=== PATIENT | female | born 1995 | race Native Hawaiian/Other Pacific Islander ===

== ENCOUNTER 2018-10-05 18:20 | Emergency (ER) | payer SELFPAY ==
--- NOTE | 2018-10-05 20:32 | XRAY Report ---
Reason: sob Procedure Date: 10/05/2018 Accession Number: [id number] / [id number] Procedure: XR - Chest 1 View X-Ray CPT Code: 31503 FULL RESULT: EXAM: CHEST RADIOGRAPHY EXAM DATE: 10/05/2018 08:22 PM. CLINICAL HISTORY: Sob. COMPARISON: None. TECHNIQUE: 1 view. FINDINGS: Lungs/Pleura: No focal opacities evident. No pleural effusion. No pneumothorax. Mediastinum: Within exam limitations, the cardiomediastinal contour is normal. Other: None. IMPRESSION: Normal single view chest. RADIA
[2018-10-05 20:50] LABS: BASOPHILS # (AUTO) 0.1 10^3/uL (0.0-0.1); BASOPHILS % (AUTO) 0.7 %; EOSINOPHILS # (AUTO) 0.1 10^3/uL (0.0-0.7); EOSINOPHILS % (AUTO) 1.4 %; HGB - HEMOGLOBIN 13.2 g/dL (12.0-16.0); LYMPHOCYTES # (AUTO) 3.5 10^3/uL (1.5-3.5); LYMPHOCYTES % (AUTO) 40.1 %; MEAN CORPUSCULAR HGB CONC 34.1 g/dL (32.0-36.0); MEAN CORPUSCULAR VOLUME 88.1 fL (81.0-99.0); MEAN PLATELET VOLUME 7.4 fL (7.9-10.8); MONOCYTES # (AUTO) 0.6 10^3/uL (0.0-1.0); MONOCYTES % (AUTO) 6.9 %; NEUTROPHILS # (AUTO) 4.4 10^3/uL (1.5-6.6); NEUTROPHILS % (AUTO) 50.9 %; PLT - PLATELET COUNT 253 10^3/uL (130-450); RED BLOOD COUNT 4.41 10^6/uL (4.20-5.40); RED CELL DISTRIBUTION WIDTH 13.1 % (12.0-15.0); WHITE BLOOD COUNT 8.6 x10^3/uL (4.8-10.8)
[2018-10-05 20:52] LABS: BILIRUBIN,URINE NEGATIVE (NEGATIVE); GLUCOSE, URINE (UA) NEGATIVE (NEGATIVE); KETONES,URINE (UA) NEGATIVE (NEGATIVE); LEUKOCYTE ESTERASE, URINE NEGATIVE (NEGATIVE); NITRITE,URINE NEGATIVE (NEGATIVE); OCCULT BLOOD,URINE NEGATIVE (NEGATIVE); PROTEIN,URINE NEGATIVE (NEGATIVE); UROBILINOGEN,URINE 0.2 (NORMAL) E.U./dL (NORMAL)
[2018-10-05 20:55] LABS: CLARITY,URINE CLEAR (CLEAR); HCG UR QUAL NEGATIVE
[2018-10-05 20:58] LABS: CALCIUM 9.1 mg/dL (8.5-10.3); CREATININE 0.8 mg/dL (0.4-1.0)
--- NOTE | 2018-10-05 21:05 | ED Physician Documentation ---
PD HPI URI - Stated complaint Stated Complaint: FATIGUE/THROAT PAIN - Chief complaint Chief Complaint: Heent - History obtained from History obtained from: Patient - History of Present Illness Timing - onset: How many days ago (3) Timing duration: Days (3) Timing details: Gradual onset, Still present, Waxing and waning Pain level max: 0 Pain level now: 0 Associated symptoms: Sore throat, Swollen nodes, Dyspnea. No: Fever, Chills, Sweats, Ear pain, Nasal congestion, Rhinorrhea, Sinus pain, Productive cough, Chest pain, NVD, Bilateral edema Contributing factors: No: Sick contact, Travel Improves by: Nothing Worsened by: Other (Nothing) Similar symptoms before: Has not had sx before Recently seen: Not recently seen - Additional information Additional information: 23-year-old female with no past medical or surgical history here with complain of sore throat the past 3 days associated with fatigue and difficulty breathing because she feels like something is in her throat. Denies any exposure to allergens.Denies smoking, alcohol, drugs or kissing and sexual activity. Denies any trauma, travel or sick contact. Review of Systems Ten Systems: 10 systems reviewed and negative Constitutional: reports: Fatigue. denies: Fever, Chills, Myalgias Nose: denies: Rhinorrhea / runny nose, Congestion Throat: reports: Sore throat, Swollen tonsils. denies: Dental pain / toothache (Chronic), Oral lesions / sores, Swallowed foreign body Cardiac: denies: Chest pain / pressure Respiratory: reports: Dyspnea. denies: Cough GI: denies: Abdominal Pain, Nausea, Vomiting, Diarrhea PD PAST MEDICAL HISTORY - Past Medical History Past Medical History: No GI: None DOMESTIC MAID: 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 - Past Surgical History Past Surgical History: Yes Ortho: Arthroscopic surgery /DOMESTIC MAID: Endometrial ablation HEENT: Myringotomy (tubes) - Present Medications Home Medications: Ambulatory Orders Medication Instructions Recorded Confirmed No Known Home Medications 10/05/18 10/05/18 - Allergies Allergies/Adverse Reactions: Allergies Allergy/AdvReac Type Severity Reaction Status Date / Time Penicillins Allergy Intermediate Respiratory Verified 10/05/18 18:34 - Social History Does the pt smoke?: No Smoking Status: Never smoker Does the pt drink ETOH?: Yes Does the pt have substance abuse?: No - Immunizations Immunizations are current?: No Immunizations: No immun - POLST Patient has POLST: No PD ED PE NORMAL - Vitals Vital signs reviewed: Yes - General General: Alert and oriented X 3, No acute distress, Well developed/nourished - HEENT HEENT: Atraumatic, PERRL, EOMI, Ears normal, Moist mucous membranes, Pharynx benign, Dentition benign, Other (Enlarged tonsils but no erythema nor exudate and nonkissing) - Neck Neck: Supple, no meningeal sign, Other (Bilateral anteriorCervical adenopathy with tenderness to palpation. Small in size.) - Cardiac Cardiac: RRR, No murmur - Respiratory Respiratory: No respiratory distress, Clear bilaterally - Abdomen Abdomen: Normal bowel sounds, Soft, Non tender, Non distended - Derm Derm: Warm and dry - Extremities Extremities: No deformity - Neuro Neuro: Alert and oriented X 3 - Psych Psych: Normal mood, Normal affect Results - Vitals Vitals: Vital Signs - 24 hr 10/05/18 18:32 Temperature 35.6 C L Heart Rate 108 H Respiratory 20 Rate Blood Pressure 145/103 H O2 Saturation 97 Oxygen O2 Source Room air - Labs Labs: Laboratory Tests 10/05/18 10/05/18 10/05/18 18:30 20:25 20:39 WBC 8.6 RBC 4.41 Hgb 13.2 Hct 38.9 MCV 88.1 MCH 30.0 MCHC 34.1 RDW 13.1 Plt Count 253 MPV 7.4 L Neut # (Auto) 4.4 Lymph # (Auto) 3.5 [place] # (Auto) 0.6 Eos # (Auto) 0.1 Baso # (Auto) 0.1 Absolute Nucleated RBC 0.01 Nucleated RBC % 0.1 Sodium Potassium Chloride Carbon Dioxide Anion Gap BUN Creatinine Estimated GFR (MDRD) Glucose Calcium Urine Color YELLOW Urine Clarity CLEAR Urine pH 6.0 Ur Specific [place] 1.025 Urine Protein NEGATIVE Urine Glucose (UA) NEGATIVE Urine Ketones NEGATIVE Urine Occult Blood NEGATIVE Urine Nitrite NEGATIVE Urine Bilirubin NEGATIVE Urine Urobilinogen 0.2 (NORMAL) Ur Leukocyte Esterase NEGATIVE Ur Microscopic Review NOT INDICATED Urine Culture Comments NOT INDICATED Urine HCG, Qual NEGATIVE Infectious [place] Assay Group A Strep Rapid Negative 10/05/18 10/05/18 20:39 20:39 WBC RBC Hgb Hct MCV MCH MCHC RDW Plt Count MPV Neut # (Auto) Lymph # (Auto) [place] # (Auto) Eos # (Auto) Baso # (Auto) Absolute Nucleated RBC Nucleated RBC % Sodium 137 Potassium 3.9 Chloride 103 Carbon Dioxide 25 Anion Gap 9.0 BUN 11 Creatinine 0.8 Estimated GFR (MDRD) 87 L Glucose 94 Calcium 9.1 Urine Color Urine Clarity Urine pH Ur Specific [place] Urine Protein Urine Glucose (UA) Urine Ketones Urine Occult Blood Urine Nitrite Urine Bilirubin Urine Urobilinogen Ur Leukocyte Esterase Ur Microscopic Review Urine Culture Comments Urine HCG, Qual Infectious [place] Assay NEGATIVE Group A Strep Rapid PD MEDICAL DECISION MAKING - ED course Complexity details: re-evaluated patient ([id number] sitting in the chair in no acute distress and nontoxic appearing. Mom at the bedside. Both were informed of test results. Discussed patient's diet and fever and pain control with OTC Tylenol or Motrin.), considered differential (Pharyngitis viral versus strep, lymphadenopathy, viral syndrome, mono, anemia, Pneumonia), d/w patient, d/w family Departure - Departure Disposition: 01 Home, Self Care Clinical Impression: Viral syndrome Pharyngitis Qualifiers: Pharyngitis/tonsillitis etiology: other specified organisms Qualified Code(s): J02.8 - Acute pharyngitis due to other specified organisms Condition: Stable Instructions: ED Pharyngitis Viral Report Pending, ED Viral Syndrome Comments: Drink lots of fluids and eat soft foods. OTC Tylenol or Motrin for pain. Follow-up with your primary doctor next week. If worse return to the emergency room.
[2018-10-05 22:01] VITALS: BP 127/97
== END 2018-10-05 22:01 | disposition home or self-care (01) ==
LOC: ED 18:20
DX: B34.9 Viral infection, unspecified (principal); J02.8 Acute pharyngitis due to other specified organisms; C56.9 Malignant neoplasm of unspecified ovary
CPT/HCPCS: 36415; 71045; 80048; 81001; 81003; 81025; 85025; 86308; 87070; 87086; 87430; 99282; 99283

== ENCOUNTER 2018-10-16 15:41 | Outpatient (CLI) | payer MEDICAID | END 2018-10-16 15:42 | disposition critical access hospital (66) | LOC: EMS 15:41 | PROVIDERS: ATTEND Surgery | DX: H92.02 Otalgia, left ear (principal) | CPT/HCPCS: A0425; A0429 ==

== ENCOUNTER 2018-10-16 16:05 | Emergency (ER) | payer MEDICAID ==
[2018-10-16] MEDS ORDERED: DEXAMETHASONE 10 MG/ML VIAL PO STA (17:33)
--- NOTE | 2018-10-16 17:36 | ED Physician Documentation ---
PD HPI HEENT - Stated complaint Stated Complaint: L EAR PX - Chief complaint Chief Complaint: Heent - History obtained from History obtained from: Patient - History of Present Illness Timing - onset: How many weeks ago (1) Timing - duration: Weeks (1) Timing - details: Gradual onset, Still present Location: Left ear, Throat Improves: Medication Worsens: Swalllowing Associated symptoms: Fever, Congestion, Rhinorrhea, Unable to swallow, Swollen nodes, Headache, Cough Similar symptoms before: Diagnosis (OM and strep) Recently seen: Emergency Dept - Additional information Additional information: 23-year-old female was seen in the emergency department 1 week ago for a sore throat had a negative rapid strep at that time and she was treated conservatively. She seemed to get some better and then about a day later all of a sudden she was worse again. She states that the nasal congestion cough and ear pain all started up and worsened day by day. She has not been able to eat or drink much because of the sore throat and she developed some blood from the left ear today. She called the ambulance to come to the hospital. Review of Systems Constitutional: reports: Fever, Chills, Myalgias, Fatigue, Sweats Eyes: denies: Decreased vision Ears: reports: Ear pain Nose: reports: Rhinorrhea / runny nose, Congestion Throat: reports: Sore throat Cardiac: denies: Chest pain / pressure, Palpitations Respiratory: reports: Dyspnea, Cough : denies: Dysuria, Frequency Skin: denies: Rash Musculoskeletal: reports: Neck pain. 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: 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 - Past Surgical History Past Surgical History: Yes Ortho: Arthroscopic surgery /CLINICAL DATA COORDINATOR: Endometrial ablation HEENT: Myringotomy (tubes) - Present Medications Home Medications: Ambulatory Orders Medication Instructions Recorded Confirmed RX: Cefdinir 300 mg PO BID #20 capsule 10/16/18 - Allergies Allergies/Adverse Reactions: Allergies Allergy/AdvReac Type Severity Reaction Status Date / Time Penicillins Allergy Intermediate Respiratory Verified 10/16/18 17:45 - Social History Does the pt smoke?: No Smoking Status: Never smoker Does the pt drink ETOH?: Yes Does the pt have substance abuse?: No - Immunizations Immunizations are current?: No Immunizations: No immun - POLST Patient has POLST: No PD ED PE NORMAL - Vitals Vital signs reviewed: Yes (febrile tachy and hypertensive) - General General: Alert and oriented X 3, Well developed/nourished, Other (appears miserabile with nasal quality to voice covered in blankets and withdrawn. ) - HEENT HEENT: Atraumatic, PERRL, EOMI, Other (both TM's are inflamed with indistinct landmarks the left is worse than the right and there is no evidence of rupture today ) - Neck Neck: Supple, no meningeal sign, No bony TTP - Cardiac Cardiac: RRR, No murmur - Respiratory Respiratory: No respiratory distress, Clear bilaterally - Abdomen Abdomen: Soft, Non tender - Back Back: No CVA TTP, No spinal TTP - Derm Derm: Normal color, Warm and dry, No rash - Extremities Extremities: No deformity, No edema - Neuro Neuro: Alert and oriented X 3, manager of creative services 2-12 intact, No motor deficit, No sensory deficit, Normal speech Eye Opening: Spontaneous Motor: Obeys Commands Verbal: Oriented GCS Score: 15 - Psych Psych: Normal mood, Normal affect Results - Vitals Vitals: Vital Signs - 24 hr 10/16/18 10/16/18 16:11 18:07 Temperature 37.9 C H Heart Rate 112 H 90 Respiratory 18 18 Rate Blood Pressure 137/81 H 150/90 H O2 Saturation 99 98 Oxygen O2 Source Room air - Labs Labs: Laboratory Tests 10/16/18 16:14 Influenza A (Rapid) Negative Influenza B (Rapid) Negative PD MEDICAL DECISION MAKING - ED course Complexity details: reviewed old records, reviewed results, re-evaluated patient, considered differential, d/w patient ED course: 23-year-old female with upper respiratory symptoms has bilateral otitis and she does have large cryptic tonsils well. She is administered dexamethasone 10 mg orally and we will place her on some Omnicef. Departure - Departure Disposition: 01 Home, Self Care Clinical Impression: Otitis media Qualifiers: Otitis media type: suppurative Chronicity: acute Laterality: bilateral Recurrence: not specified as recurrent Spontaneous tympanic membrane rupture: without spontaneous rupture Qualified Code(s): H66.003 - Acute suppurative otitis media without spontaneous rupture of ear drum, bilateral Condition: Stable Instructions: ED Otitis Media Acute Adult Follow-Up: [facility] [Provider Group] Prescriptions: RX: Cefdinir 300 mg PO BID #20 capsule Discharge Date/Time: 10/16/18 18:07
[2018-10-16] MEDS ORDERED: CHERRY SYRUP 10 ML UDC PO ONE (18:03)
[2018-10-16 18:07] VITALS: BP 150/90
== END 2018-10-16 18:07 | disposition home or self-care (01) ==
LOC: EDUNIT# → ED 16:05
DX: H66.003 Acute suppurative otitis media without spontaneous rupture of ear drum, bilateral (principal)
CPT/HCPCS: 87275; 87276; 99283; A9270

== ENCOUNTER 2018-10-17 20:23 | Emergency (ER) | payer MEDICAID ==
[2018-10-17 20:35] VITALS: BP 137/79
[2018-10-17] MEDS ORDERED: PSEUDOEPHEDRINE 30 MG TABLET PO STA (21:01)
--- NOTE | 2018-10-17 21:01 | ED Physician Documentation ---
PD HPI URI - Stated complaint Stated Complaint: CHILLS/BILAT EAR PX/VOMIT - Chief complaint Chief Complaint: Heent - History obtained from History obtained from: Patient, Family - History of Present Illness Timing - onset: How many weeks ago (1.5) Timing duration: Weeks (1.5) Timing details: Gradual onset, Waxing and waning Pain level max: 8 Pain level now: 8 Associated symptoms: Fever, Chills, Ear pain, Nasal congestion, Rhinorrhea, Sore throat, Dry cough Contributing factors: Sick contact Improves by: Rest Worsened by: Activity, Breathing Recently seen: Emergency Dept (yesterday for same) Review of Systems Constitutional: reports: Fever GI: denies: Vomiting, Diarrhea Skin: denies: Rash Musculoskeletal: denies: Neck pain, Back pain Neurologic: denies: Headache PD PAST MEDICAL HISTORY - Past Medical History Past Medical History: Yes GI: None 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 - Past Surgical History Past Surgical History: Yes Ortho: Arthroscopic surgery /POULTRY TENDER: Endometrial ablation HEENT: Myringotomy (tubes) - Present Medications Home Medications: Ambulatory Orders Medication Instructions Recorded Confirmed Cefdinir 300 mg PO BID #20 capsule 10/16/18 Azithromycin [Zithromax] 0 mg PO DAILY #6 tablet 10/17/18 Cetirizine HCl/Pseudoephedrine 1 each PO BID PRN #30 tab.er.12h 10/17/18 [Zyrtec-D Tablet] Hydrocodone/Acetaminophen 1 - 2 each PO Q6H PRN #14 tablet 10/17/18 [Hydrocodon-Acetaminophen 5-325] - Allergies Allergies/Adverse Reactions: Allergies Allergy/AdvReac Type Severity Reaction Status Date / Time Penicillins Allergy Intermediate Respiratory Verified 10/17/18 20:35 - Living Situation Living Situation: reports: With family Living Arrangement: reports: At home - Social History Does the pt smoke?: No Smoking Status: Never smoker Does the pt drink ETOH?: Yes Does the pt have substance abuse?: No - Immunizations Immunizations are current?: No Immunizations: No immun - POLST Patient has POLST: No PD ED PE NORMAL - Vitals Vital signs reviewed: Yes - General General: Alert and oriented X 3, No acute distress - HEENT HEENT: Moist mucous membranes, Pharynx benign, Other (B TM are erythematous, dull bulging with loss of landmarks. ) - Neck Neck: Supple, no meningeal sign - Cardiac Cardiac: RRR, Strong equal pulses - Respiratory Respiratory: No respiratory distress, Clear bilaterally - Abdomen Abdomen: Soft, Non tender, Non distended - Back Back: No CVA TTP, No spinal TTP - Derm Derm: Warm and dry, No rash - Neuro Neuro: Alert and oriented X 3 - Psych Psych: Normal mood, Normal affect Results - Vitals Vitals: Vital Signs - 24 hr 10/17/18 10/17/18 20:32 22:11 Temperature 37.5 C Heart Rate 114 H 105 H Respiratory 18 15 Rate Blood Pressure 137/79 H O2 Saturation 95 95 Oxygen O2 Source Room air - Rads (name of study) cxr Radiology: Prelim report reviewed, EMP read contemporaneously, See rad report (no acute disease) PD MEDICAL DECISION MAKING - ED course Complexity details: reviewed results, re-evaluated patient, considered differential, d/w patient ED course: 23 year old female with B acute OM. States could not fill the cefdinir, will change to azithromycin. Will place on decongestants for home and follow up with PCP. no evidence of sepsis or pneumonia. Patient counseled regarding signs and symptoms for which I believe and urgent re-evaluation would be necessary. Patient with good understanding of and agreement to plan and is comfortable going home at this time This document was made in part using voice recognition software. While efforts are made to proofread this document, sound alike and grammatical errors may occur. Departure - Departure Disposition: 01 Home, Self Care Clinical Impression: Vomiting Otitis media Qualifiers: Otitis media type: suppurative Chronicity: acute Laterality: bilateral Recurrence: not specified as recurrent Spontaneous tympanic membrane rupture: without spontaneous rupture Qualified Code(s): H66.003 - Acute suppurative otitis media without spontaneous rupture of ear drum, bilateral Condition: Good Instructions: ED Otitis Media Acute Adult Follow-Up: your,doctor in 1 week [Other] Prescriptions: Azithromycin [Zithromax] 0 mg PO DAILY #6 tablet Cetirizine HCl/Pseudoephedrine [Zyrtec-D Tablet] 1 each PO BID PRN #30 tab.er.12h PRN Reason: Nasal Congestion Hydrocodone/Acetaminophen [Hydrocodon-Acetaminophen 5-325] 1 - 2 each PO Q6H PRN #14 tablet PRN Reason: pain Comments: Take all anitbiotics until gone. Return if you worsen. Do not drink alcohol or drive while on narcotic pain medicine. Note that many narcotic pain relievers also contain tylenol/acetaminophen. Please ensure that your total dose of acetaminophen from all sources does not exceed 3 grams (3000mg) per day. You may constipated on this medication, take a stool softener such as "Colace" twice a day while you are on it. Also recommend a [id number] laxative such as senna or MiraLAX any day that you do not have a bowel movement. If you received narcotic pain medication in the emergency department, do not drive or operate machinery for the next 24 hours. Discharge Date/Time: 10/17/18 22:11
[2018-10-17] MEDS ORDERED: CETIRIZINE 10 MG TABLET PO STA (21:02)
[2018-10-17] MEDS ORDERED: HYDROcod/ACETAM 5/325 MG TABLET PO STA ×2 (21:02→21:54)
[2018-10-17] MEDS ORDERED: ONDANSETRON ODT 4 MG TABLET TL STA (21:07)
--- NOTE | 2018-10-17 21:34 | XRAY Report ---
Reason: cough, fever Procedure Date: 10/17/2018 Accession Number: [id number] / [id number] Procedure: XR - Chest 2 View X-Ray CPT Code: 90707 FULL RESULT: EXAM: CHEST RADIOGRAPHY EXAM DATE: 10/17/2018 09:16 PM. CLINICAL HISTORY: Cough, fever. COMPARISON: CHEST 1 VIEW 10/05/2018 8:15 PM. TECHNIQUE: 2 views. FINDINGS: Lungs/Pleura: No focal opacities evident. No pleural effusion. No pneumothorax. Normal volumes. Mediastinum: Heart and mediastinal contours are unremarkable. Other: None. IMPRESSION: Normal 2-view chest radiography. RADIA
--- NOTE | 2018-10-18 13:00 | ED Physician Documentation ---
ED Addendum - Addendum Addendum: 10/18/18 12:59 TC from [facility] They have prescriptions for both Cefdinir and Zithromax. I looked at the notes and recommended they fill the Cefdinir, As long as that her reaction to penicillin was not anaphylaxis, the pharmacist will ask her. In that case I recommended the Zithromax. 10/18/18 13:00
== END 2018-10-17 22:11 | disposition home or self-care (01) ==
LOC: ED 20:23
DX: R11.10 Vomiting, unspecified (principal); H66.003 Acute suppurative otitis media without spontaneous rupture of ear drum, bilateral; Z85.43 Personal history of malignant neoplasm of ovary
CPT/HCPCS: 71046; 99283; A9270; Q0162

== ENCOUNTER 2019-04-05 01:07 | Emergency (ER) | payer MEDICAID ==
--- NOTE | 2019-04-05 01:11 | ED Physician Documentation ---
PD HPI FEMALE - Stated complaint Stated Complaint: FEMALE - History obtained from History obtained from: Patient - History of Present Illness Timing - onset: How many days ago (4) Timing - details: Gradual onset, Still present (worsening pain with some bleeding now, from hemorrhoids, despite Prep H cream and tucks pads.) Associated symptoms: Other (Has had hemorrhoidal pain with tenderness on wiping and with bowel movements. She does take a stool softener so had been going regularly. She has noticed some bleeding from it today.). 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rect 04/05/19 - Allergies Allergies/Adverse Reactions: Allergies Allergy/AdvReac Type Severity Reaction Status Date / Time Penicillins Allergy Intermediate Respiratory Verified 04/05/19 01:14 - Social History Does the pt smoke?: No Smoking Status: Never smoker Does the pt drink ETOH?: Yes Does the pt have substance abuse?: No - Immunizations Immunizations are current?: No Immunizations: No immun - POLST Patient has POLST: No PD ED PE NORMAL - Vitals Vital signs reviewed: Yes - General General: Alert and oriented X 3, Well developed/nourished - Abdomen Abdomen: Soft, Non tender - Female Female : Deferred - Rectal Rectal: Other (There is some external hemorrhoids that are enlarged and tender but compressible. There is no physical sign of thrombosed hemorrhoids. There is some mild bleeding.) - Back Back: No CVA TTP - Derm Derm: Normal color - Neuro Neuro: Alert and oriented X 3, No motor deficit, Normal speech Results - Vitals Vitals: Vital Signs - 24 hr 04/05/19 01:11 Temperature 36.4 C L Heart Rate 102 H Respiratory 16 Rate Blood Pressure 136/80 H O2 Saturation 99 Oxygen O2 Source Room air Departure - Departure Disposition: Home, Self Care Clinical Impression: Hemorrhoids Qualifiers: Hemorrhoid type: unspecified Qualified Code(s): K64.9 - Unspecified hemorrhoids Condition: Stable Record reviewed to determine appropriate education?: Yes Instructions: ED Hemorrhoids Prescriptions: Phenylephrine HCl [Maty-Med] 1 each RC BID #10 supp.rect Comments: It sounds like you are doing all good things for the hemorrhoids with the stool softener and cleaning pads and Preparation H cream. To it to add the Anusol suppositories twice daily for 4 to 5 days until feeling a lot better. Tylenol ibuprofen or naproxen as needed for pains. Recheck if not improved over the next couple of days and or if worsening. Discharge Date/Time: 04/05/19 01:59
[2019-04-05 01:14] VITALS: BP 136/80
[2019-04-05] MEDS ORDERED: NAPROXEN 250 MG TABLET PO STA (01:35)
[2019-04-05] MEDS ORDERED: HYDROCORTISONE 25 MG SUPPOSITORY PR STA (01:35)
== END 2019-04-05 01:59 | disposition home or self-care (01) ==
LOC: ED 01:07
DX: K64.4 Residual hemorrhoidal skin tags (principal)
CPT/HCPCS: 99283; A9270; J3490

== ENCOUNTER 2020-01-13 20:07 | Emergency (ER) | payer MEDICAID ==
[2020-01-13 21:09] LABS: BASOPHILS % (AUTO) 0.3 %; EOSINOPHILS # (AUTO) 0.1 10^3/uL (0.0-0.7); EOSINOPHILS % (AUTO) 0.8 %; HGB - HEMOGLOBIN 13.1 g/dL (12.0-16.0); LYMPHOCYTES # (AUTO) 2.4 10^3/uL (1.5-3.5); LYMPHOCYTES % (AUTO) 23.1 %; MEAN CORPUSCULAR HEMOGLOBIN 29.8 pg (27.0-31.0); MEAN CORPUSCULAR HGB CONC 32.8 g/dL (32.0-36.0); MEAN CORPUSCULAR VOLUME 91.1 fL (81.0-99.0); MEAN PLATELET VOLUME 9.5 fL (7.9-10.8); MONOCYTES # (AUTO) 0.8 10^3/uL (0.0-1.0); MONOCYTES % (AUTO) 7.9 %; NEUTROPHILS # (AUTO) 7.1 10^3/uL (1.5-6.6); NEUTROPHILS % (AUTO) 67.5 %; PLT - PLATELET COUNT 291 10^3/uL (130-450); RED BLOOD COUNT 4.39 10^6/uL (4.20-5.40); RED CELL DISTRIBUTION WIDTH 12.6 % (12.0-15.0); WHITE BLOOD COUNT 10.6 x10^3/uL (4.8-10.8)
[2020-01-13 21:23] LABS: ALBUMIN/GLOBULIN RATIO 0.9 (1.0-2.2); BILIRUBIN,TOTAL 0.4 mg/dL (0.2-1.0); CALCIUM 9.1 mg/dL (8.5-10.3); CREATININE 1.2 mg/dL (0.4-1.0); TOTAL PROTEIN 8.4 g/dL (6.7-8.2)
[2020-01-13] MEDS ORDERED: KETOROLAC 30 MG/ML VIAL IVP STA (22:13)
[2020-01-13 23:02] LABS: BILIRUBIN,URINE NEGATIVE (NEGATIVE); GLUCOSE, URINE (UA) NEGATIVE (NEGATIVE); KETONES,URINE (UA) NEGATIVE (NEGATIVE); LEUKOCYTE ESTERASE, URINE NEGATIVE (NEGATIVE); NITRITE,URINE NEGATIVE (NEGATIVE); OCCULT BLOOD,URINE NEGATIVE (NEGATIVE); PH,URINE 5.5 PH (5.0-7.5); PROTEIN,URINE NEGATIVE (NEGATIVE); UROBILINOGEN,URINE 0.2 (NORMAL) E.U./dL (NORMAL)
[2020-01-13 23:03] LABS: CLARITY,URINE CLEAR (CLEAR)
--- NOTE | 2020-01-14 00:50 | Ultrasound Report ---
Reason: PELVIC PAIN Procedure Date: 01/13/2020 Accession Number: [id number] / [id number] Procedure: US - Pelvic w/Transvaginal CPT Code: Final Report FULL RESULT: EXAM: PELVIC ULTRASOUND EXAM DATE: 01/13/2020 11:59 PM. CLINICAL HISTORY: PELVIC PAIN. COMPARISON: None. TECHNIQUE: Realtime transabdominal pelvic scan performed to identify the uterus and adnexa and as an overview of other pelvic structures, followed by transvaginal scan to provide greater detail of the uterus and adnexa, with static image documentation. FINDINGS: Uterus: 7.3 x 4.3 x 3 x 2 cm, volume 53 cc. Anteverted position. Normal overall size and echotexture. Masses: None. Endometrium: 8 mm. IUD in appropriate position within the endometrium. Cervix: Trace fluid. Right Ovary: 3.7 x 2.3 x 2.2 cm, volume 9.8 cc. Normal echotexture and blood flow. Multiple small follicles measuring up to 1.1 cm. Left Ovary: 3.9 x 2.4 x 1.9 cm, volume 5.3 cc. Normal echotexture and blood flow. Multiple small follicles. Free Fluid: Small amount, likely physiologic. Other: None. IMPRESSION: No acute sonographic abnormalities. RADIA
--- NOTE | 2020-01-14 04:03 | ED Physician Documentation ---
PD HPI FEMALE - Stated complaint Stated Complaint: AB PX/BILAT EAR PX - Chief complaint Chief Complaint: Abd Pain - History obtained from History obtained from: Patient - History of Present Illness Timing - details: Still present Pain level max: 10 Pain level max: 10 Associated symptoms: Vaginal bleeding. No: Fever - Additional information Additional information: 24 YEAR OLD FEMALE WHO REPORTEDLY HAD 5 PREVIOUS ECTOPIC PREGNANCIES IN THE PAST (WHEN SHE WAS LIVING IN [facility]) WHO REPORTED THAT SHE WAS RECENTLY AND UNDERWENT A MISCARRIAGE. SHE REPORTED OF ONGOING VAGINAL BLEEDING ABOUT 6 PADS A DAY AND AN INCREASE IN BILATERAL PELVIC PAIN. SHE DENIES FEVER, C HILLS, NAUSE,A VOMITING, SYNCOPE OR NEAR SYNCOPE. Review of Systems Constitutional: denies: Fever, Chills Ears: reports: Other (FEELS LIKE HER EARS ARE FULL (FROM POPPING HER EARS DURING A DRIVE FROM [place] RECENTLY)) Nose: denies: Rhinorrhea / runny nose Cardiac: denies: Chest pain / pressure Respiratory: denies: Dyspnea, Cough GI: denies: Abdominal Pain, Abdominal Swelling, Nausea, Vomiting : reports: Vaginal bleeding Skin: denies: Rash Musculoskeletal: denies: Neck pain, Back pain, Extremity pain, Joint pain Neurologic: denies: Generalized weakness, Focal weakness, Numbness, Syncope PD PAST MEDICAL HISTORY - Past Medical History Cardiovascular: None Respiratory: None Neuro: None Endocrine/Autoimmune: None GI: None, Hemorrhoids 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: 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 , 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 Psych: None Musculoskeletal: None - Past Surgical History Past Surgical History: Yes Ortho: Arthroscopic surgery /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: Endometrial ablation HEENT: Myringotomy (tubes) - Present Medications Home Medications: Ambulatory Orders Medication Instructions Recorded Confirmed Cefdinir 300 mg PO BID #20 capsule 10/16/18 Azithromycin [Zithromax] 0 mg PO DAILY #6 tablet 10/17/18 Cetirizine HCl/Pseudoephedrine 1 each PO BID PRN #30 tab.er.12h 10/17/18 [Zyrtec-D Tablet] Hydrocodone/Acetaminophen 1 - 2 each PO Q6H PRN #14 tablet 10/17/18 [Hydrocodon-Acetaminophen 5-325] Phenylephrine HCl [Maty-Med] 1 each RC BID #10 supp.rect 04/05/19 Metronidazole [Flagyl] 500 mg PO BID #14 tablet 01/14/20 - Allergies Allergies/Adverse Reactions: Allergies Allergy/AdvReac Type Severity Reaction Status Date / Time Penicillins Allergy Intermediate Respiratory Verified 04/05/19 01:14 - Social History Does the pt smoke?: No Smoking Status: Never smoker Does the pt drink ETOH?: Yes Does the pt have substance abuse?: No - Immunizations Immunizations are current?: No Immunizations: No immun - POLST Patient has POLST: No PD ED PE NORMAL - Vitals Vital signs reviewed: Yes - General General: Alert and oriented X 3 - HEENT HEENT: Atraumatic - Neck Neck: Supple, no meningeal sign - Cardiac Cardiac: RRR - Respiratory Respiratory: No respiratory distress - Abdomen Abdomen: Normal bowel sounds - 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 NO VAGINAL BLEEDING NOTED. SMALL AMOUNT OF WHITE DISCHARGE) - Back Back: No CVA TTP - Derm Derm: Normal color - Extremities Extremities: No deformity, No tenderness to palpate, Normal ROM s pain - Neuro Neuro: Alert and oriented X 3, fudger 2-12 intact Eye Opening: Spontaneous Motor: Obeys Commands Verbal: Oriented GCS Score: 15 Results - Vitals Vitals: Oxygen O2 Source Room air - Labs Labs: Laboratory Tests 01/13/20 01/13/20 01/13/20 21:03 21:03 21:03 WBC 10.6 RBC 4.39 Hgb 13.1 Hct 40.0 MCV 91.1 MCH 29.8 MCHC 32.8 RDW 12.6 Plt Count 291 MPV 9.5 Neut # (Auto) 7.1 H Lymph # (Auto) 2.4 Piatt # (Auto) 0.8 Eos # (Auto) 0.1 Baso # (Auto) 0.0 Absolute Nucleated RBC 0.00 Nucleated RBC % 0.0 Sodium 138 Potassium 3.8 Chloride 103 Carbon Dioxide 26 Anion Gap 9.0 BUN 16 Creatinine 1.2 H Estimated GFR (MDRD) 54 L Glucose 116 H Calcium 9.1 Total Bilirubin 0.4 AST 22 ALT 21 Alkaline Phosphatase 44 Total Protein 8.4 H Albumin 4.0 Globulin 4.4 H Albumin/Globulin Ratio 0.9 L Lipase 40 HCG, Quant < 0.60 Urine Color Urine Clarity Urine pH Ur Specific [place] Urine Protein Urine Glucose (UA) Urine Ketones Urine Occult Blood Urine Nitrite Urine Bilirubin Urine Urobilinogen Ur Leukocyte Esterase Ur Microscopic Review Urine Culture Comments C. glabrata (PCR) C. krusei (PCR) Jasmina species DNA Chlam trachomat DNA PCR N.gonorrhoeae DNA (PCR) T. vaginalis (PCR) Bact Vaginosis (PCR) 01/13/20 01/14/20 01/14/20 22:50 02:28 03:05 WBC RBC Hgb Hct MCV MCH MCHC RDW Plt Count MPV Neut # (Auto) Lymph # (Auto) Piatt # (Auto) Eos # (Auto) Baso # (Auto) Absolute Nucleated RBC Nucleated RBC % Sodium Potassium Chloride Carbon Dioxide Anion Gap BUN Creatinine Estimated GFR (MDRD) Glucose Calcium Total Bilirubin AST ALT Alkaline Phosphatase Total Protein Albumin Globulin Albumin/Globulin Ratio Lipase HCG, Quant Urine Color YELLOW Urine Clarity CLEAR Urine pH 5.5 Ur Specific [place] >=1.030 H Urine Protein NEGATIVE Urine Glucose (UA) NEGATIVE Urine Ketones NEGATIVE Urine Occult Blood NEGATIVE Urine Nitrite NEGATIVE Urine Bilirubin NEGATIVE Urine Urobilinogen 0.2 (NORMAL) Ur Leukocyte Esterase NEGATIVE Ur Microscopic Review NOT INDICATED Urine Culture Comments NOT INDICATED C. glabrata (PCR) NEGATIVE C. krusei (PCR) NEGATIVE Jasmina species DNA NEGATIVE Chlam trachomat DNA PCR POSITIVE A N.gonorrhoeae DNA (PCR) NEGATIVE T. vaginalis (PCR) NEGATIVE NEGATIVE Bact Vaginosis (PCR) POSITIVE A PD MEDICAL DECISION MAKING - ED course Complexity details: re-evaluated patient, d/w patient ED course: 24 YEAR OLD FEMALE PRESENTS TO THE EMERGENCY DEPARTMENT BECAUSE OF VAGINAL BLEEDING, PELVIC CRAMPS. HCG WAS NEGATIVE. H/H WERE STABLE. PELVIC US DID NOT SHOW ACUTE ABNORMALITY. NO EVIDENCE OF THICKENED ENDOMETRIUM, OVARIAN TORSION OR HYDROSALPHIX. PATIENT REMAINED STABLE. SHE WAS RESTING COMFORTABLE. UA WAS NOT CONSISTENT WITH UTI. WET PREP AND GC RESULTS WERE PENDING. WILL CONTACT PATIENT FOR RESULTS IF THEY CAME BACK ABNORMAL. PELVIC EXAM DID NOT DEMONSTRATE CERVICAL MOTION TENDERNESS TO SUGGEST PELVIC INFLAMMATORY DISEASE/ AT THIS TIME, I RECOMMMEND OUTPATIENT FOLLOW UP WITH PCP IN 3-5 DAYS WAS RECOMMENDED. AT THIS TIME SHE IS NOT BLEEDING. BILATERAL TM'S WERE VISUALIZED WITHOUT EVIDENCE OF OTITIS MEDIA, OTITIS EXTERNA OR PERFORATED TM. I RECOMMEND TO KEEP EARS CLEAN AND OUTPATIENT FOLLOW UP. SHE WAS DISCHARGED IN STABLE CONDITION. Departure - Departure Disposition: 01 Home, Self Care Clinical Impression: Pelvic pain, Vaginal bleeding, Ear pain, Bacterial vaginosis Condition: Stable Instructions: ED Bleed Irregular Vaginal, ED Pelvic Pain [facility] Follow-Up: Located Within [facility] [Provider Group] - Within 3 Days Prescriptions: Metronidazole [Flagyl] 500 mg PO BID #14 tablet Comments: PLEASE USE TYLENOL OR IBUPROFEN NEEDED FOR PAIN CONTROL. PLEASE FOLLOW WITH YOUR REGULAR DOCTOR IN 3-5 DAYS. Forms: Activity restrictions Discharge Date/Time: 01/14/20 04:14
[2020-01-14 04:13] VITALS: BP 132/87
[2020-01-14 05:05] LABS: CANDIDA GROUP DNA NEGATIVE (NEGATIVE); CANDIDA KRUSEI DNA NEGATIVE (NEGATIVE); TRICHOMONAS VAGINALIS DNA NEGATIVE (NEGATIVE)
[2020-01-14 21:39] LABS: TRICHOMONAS VAGINALIS DNA NEGATIVE (NEGATIVE)
== END 2020-01-14 04:14 | disposition home or self-care (01) ==
LOC: ED 20:07
DX: N76.0 Acute vaginitis (principal); B96.89 Other specified bacterial agents as the cause of diseases classified elsewhere; N93.9 Abnormal uterine and vaginal bleeding, unspecified; H92.03 Otalgia, bilateral; Z85.43 Personal history of malignant neoplasm of ovary; Z88.0 Allergy status to penicillin
CPT/HCPCS: 36415; 76830; 76856; 80053; 81001; 81003; 83690; 84702; 85025; 87081; 87086; 87210; 87491; 87591; 87661; 87801; 99284

== ENCOUNTER 2020-01-19 20:08 | Emergency (ER) | payer MEDICAID ==
[2020-01-19] MEDS ORDERED: cefTRIAXone 250 MG VIAL IM STA (20:47)
[2020-01-19] MEDS ORDERED: LIDOCAINE 1% 2 ML VIAL MC ONE (20:47)
[2020-01-19] MEDS ORDERED: AZITHROMYCIN 250 MG TABLET PO STA (20:48)
--- NOTE | 2020-01-19 20:54 | ED Physician Documentation ---
History of Present Illness - Stated complaint Stated Complaint: FEMALE - Chief complaint Chief Complaint: General - Additonal information Additional information: Patient comes emergency department complaining of being diagnosed with chlamydia and needing treatment. Patient was seen here for miscarriage last week, she states and had vaginal swabs performed. She was found to have bacterial vaginosis, for which she was treated with Flagyl, but was unable to get treatment for her chlamydia. She presents emergency department today requesting this. She states that she believes she got the chlamydia from And ex-boyfriend. She has had 2 sexual partner since. She states that she uses condoms with her current partner and that she does not believeThat he has had symptoms. Patient states that she has not had any noticeable discharge or pain. No itching. She states that her bleeding from her miscarriage has completed. She denies fevers or chills. No other complaints at this time. Review of Systems Ten Systems: 10 systems reviewed and negative Constitutional: reports: Reviewed and negative Eyes: reports: Reviewed and negative Ears: reports: Reviewed and negative Nose: reports: Reviewed and negative Throat: reports: Reviewed and negative Cardiac: reports: Reviewed and negative Respiratory: reports: Reviewed and negative GI: reports: Reviewed and negative : reports: Reviewed and negative Skin: reports: Reviewed and negative Musculoskeletal: reports: Reviewed and negative Neurologic: reports: Reviewed and negative Psychiatric: reports: Reviewed and negative Endocrine: reports: Reviewed and negative Immunocompromised: reports: Reviewed and negative PD PAST MEDICAL HISTORY - Past Medical History Cardiovascular: None Respiratory: None Neuro: None Endocrine/Autoimmune: None GI: None, Hemorrhoids 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 , 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 Psych: None Musculoskeletal: None - Past Surgical History Past Surgical History: Yes Ortho: Arthroscopic surgery /FINAL ASSEMBLY WORKER: Endometrial ablation HEENT: Myringotomy (tubes) - Present Medications Home Medications: Ambulatory Orders Medication Instructions Recorded Confirmed Cefdinir 300 mg PO BID #20 capsule 10/16/18 Azithromycin [Zithromax] 0 mg PO DAILY #6 tablet 10/17/18 Cetirizine HCl/Pseudoephedrine 1 each PO BID PRN #30 tab.er.12h 10/17/18 [Zyrtec-D Tablet] Hydrocodone/Acetaminophen 1 - 2 each PO Q6H PRN #14 tablet 10/17/18 [Hydrocodon-Acetaminophen 5-325] Phenylephrine HCl [Maty-Med] 1 each RC BID #10 supp.rect 04/05/19 Metronidazole [Flagyl] 500 mg PO BID #14 tablet 01/14/20 - Allergies Allergies/Adverse Reactions: Allergies Allergy/AdvReac Type Severity Reaction Status Date / Time Penicillins Allergy Intermediate Respiratory Verified 01/19/20 20:18 - Social History Does the pt smoke?: No Smoking Status: Never smoker Does the pt drink ETOH?: Yes Does the pt have substance abuse?: No - Immunizations Immunizations are current?: No Immunizations: No immun - POLST Patient has POLST: No PD ED PE NORMAL - Vitals Vital signs reviewed: Yes - General General: Alert and oriented X 3, No acute distress - HEENT HEENT: PERRL - Neck Neck: Supple, no meningeal sign - Respiratory Respiratory: No respiratory distress - Abdomen Abdomen: Soft, Non tender, Non distended - Derm Derm: Warm and dry - Extremities Extremities: No deformity - Neuro Neuro: Alert and oriented X 3 - Psych Psych: Normal mood, Normal affect Results - Vitals Vitals: Vital Signs - 24 hr 01/19/20 20:18 Temperature 37 C Heart Rate 85 Respiratory 17 Rate Blood Pressure 148/65 H O2 Saturation 97 Oxygen O2 Source Room air PD MEDICAL DECISION MAKING - ED course Complexity details: reviewed old records, reviewed results, re-evaluated patient, considered differential, d/w patient ED course: The patient was asymptomatic in the emergency department. She was treated with single dose Rocephin and Zithromax. We have discussed that her current sexual partner and the one just previous should be treated for chlamydia also, even if they have used condoms. I have advised the patient to follow-up with her EXCEPTIONAL NEEDS TEACHER for any further concerns.We discussed the usual indications for return. Departure - Departure Disposition: 01 Home, Self Care Clinical Impression: Chlamydia Condition: Good Instructions: STDs Comments: Please be sure to have any sexual partners that you have been with since being with the boyfriend who gave you chlamydia, treated for chlamydia also before you have any further sexual contact.
[2020-01-19 21:25] VITALS: BP 135/84
== END 2020-01-19 21:19 | disposition home or self-care (01) ==
LOC: ED 20:08
DX: A74.9 Chlamydial infection, unspecified (principal)
CPT/HCPCS: 96372; 99283; A9270

== ENCOUNTER 2021-03-30 13:04 | Emergency (ER) | payer MEDICAID ==
--- NOTE | 2021-03-30 13:30 | ED Physician Documentation ---
PD HPI HEENT - Stated complaint Stated Complaint: R EAR HEARING LOSS - Chief complaint Chief Complaint: Heent - History obtained from History obtained from: Patient - History of Present Illness Timing - onset: How many weeks ago (has had several weeks of decreased hearing both ears and trying Mucinex daily. Some Claritin use. Today had a pop feeling in right ear and now cannot hear nearly at all. [place] some clear fluid from ear.) Timing - duration: Weeks Timing - details: Gradual onset, Still present (worse abruptly today) Location: Right ear Associated symptoms: Congestion. No: Fever, Rhinorrhea, Facial swelling Recently seen: Not recently seen Review of Systems Constitutional: denies: Fever, Chills Ears: reports: Loss of hearing, Ear pain. denies: Tinnitus/ringing Nose: reports: Congestion. 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 : None HEENT: Chronic hearing loss, Other Psych: None Musculoskeletal: None Derm: None - Past Surgical History Past Surgical History: Yes Ortho: Arthroscopic surgery /SCAFFOLD SETTER: Endometrial ablation, Hysterectomy, Oophrectomy HEENT: Myringotomy (tubes) - Present Medications Home Medications: Ambulatory Orders Medication Instructions Recorded Confirmed Cetirizine [ZyrTEC] 10 mg PO BID #60 tablet 03/30/21 Fluticasone [Flonase] 2 sprays ELIANE DAILY 30 Days #16 gm 03/30/21 dexAMETHasone [Decadron] 4 mg PO DAILY #7 tablet 03/30/21 - Allergies Allergies/Adverse Reactions: Allergies Allergy/AdvReac Type Severity Reaction Status Date / Time Penicillins Allergy Intermediate Respiratory Verified 03/30/21 13:13 - Social History Does the pt smoke?: No Smoking Status: Never smoker Does the pt drink ETOH?: Yes Does the pt have substance abuse?: No - Immunizations Immunizations are current?: Yes Immunizations: No immun - POLST Patient has POLST: No PD ED PE NORMAL - Vitals Vital signs reviewed: Yes - General General: Alert and oriented X 3, No acute distress (but decreased hearing right ear.), Well developed/nourished - HEENT HEENT: Pharynx benign. No: Ears normal (no redness nor purulence. There is fluid behind both TMs, more to the right. No fluid in canal. no obvious perforation. ) - Neck Neck: Supple, no meningeal sign, No adenopathy - Cardiac Cardiac: RRR, No murmur - Respiratory Respiratory: Clear bilaterally - Derm Derm: Normal color, Warm and dry - Neuro Neuro: Alert and oriented X 3, No motor deficit, Normal speech Results - Vitals Vitals: Vital Signs - 24 hr 03/30/21 03/30/21 13:14 14:35 Temperature 36.5 C Heart Rate 82 83 Respiratory 18 18 Rate Blood Pressure 149/94 H 141/104 H O2 Saturation 99 100 Oxygen O2 Source Room air PD MEDICAL DECISION MAKING - ED course Complexity details: considered differential (appears serous otitis media, and will treat with antihistamines and steroids. ), d/w patient Departure - Departure Disposition: 01 Home, Self Care Clinical Impression: Otitis media Qualifiers: Otitis media type: serous Chronicity: acute Laterality: bilateral Recurrence: recurrent Qualified Code(s): H65.06 - Acute serous otitis media, recurrent, bilateral Condition: Stable Record reviewed to determine appropriate education?: Yes Instructions: ED Otitis Media Serous Adult Follow-Up: [facility] [Provider Group] Prescriptions: dexAMETHasone [Decadron] 4 mg PO DAILY #7 tablet Fluticasone [Flonase] 2 sprays ELIANE DAILY 30 Days #16 gm Cetirizine [ZyrTEC] 10 mg PO BID #60 tablet Comments: There does appear to be fluid behind both eardrums and more so on the right. This is what is impeding your hearing. There is no redness or swelling to suggest an infection at this time. We will treat with cetirizine antihistamine twice daily. Also Decadron steroid daily for a week. This will be to decrease fluid and decrease inflammation through the eustachian tube and promote better drainage. Also use fluticasone nasal spray 1 spray in each nostril daily. Follow-up with disability insurance hearing officer regarding further evaluation and care. I would anticipate improvement over the next several days to a week. I would still follow-up regardless since you had this on a fairly chronic basis. Discharge Date/Time: 03/30/21 14:47
[2021-03-30] MEDS ORDERED: ACETAMINOPHEN 325 MG TABLET PO STA (13:58)
[2021-03-30] MEDS ORDERED: DEXAMETHASONE 10 MG/ML VIAL PO STA (13:58)
[2021-03-30] MEDS ORDERED: CHERRY SYRUP 10 ML UDC PO ONE (13:58)
[2021-03-30] MEDS ORDERED: CETIRIZINE 10 MG TABLET PO STA (13:58)
[2021-03-30 14:37] VITALS: BP 141/104
== END 2021-03-30 14:47 | disposition home or self-care (01) ==
LOC: ED 13:04
DX: H65.06 Acute serous otitis media, recurrent, bilateral (principal)
CPT/HCPCS: 99283; A9270

== ENCOUNTER 2021-06-30 21:17 | Emergency (ER) | payer MEDICAID ==
[2021-06-30] MEDS ORDERED: SODIUM CHLORIDE 0.9% 1,000 ML IV STA (21:37)
[2021-06-30 21:59] LABS: BASOPHILS % (AUTO) 0.3 %; EOSINOPHILS # (AUTO) 0.1 10^3/uL (0.0-0.7); EOSINOPHILS % (AUTO) 1.1 %; HCT - HEMATOCRIT 38.9 % (37.0-47.0); LYMPHOCYTES # (AUTO) 3.1 10^3/uL (1.5-3.5); LYMPHOCYTES % (AUTO) 31.1 %; MEAN CORPUSCULAR HEMOGLOBIN 29.9 pg (27.0-31.0); MEAN CORPUSCULAR HGB CONC 33.4 g/dL (32.0-36.0); MEAN CORPUSCULAR VOLUME 89.4 fL (81.0-99.0); MEAN PLATELET VOLUME 9.9 fL (7.9-10.8); MONOCYTES # (AUTO) 0.6 10^3/uL (0.0-1.0); MONOCYTES % (AUTO) 6.2 %; PLT - PLATELET COUNT 290 10^3/uL (130-450); RED BLOOD COUNT 4.35 10^6/uL (4.20-5.40); RED CELL DISTRIBUTION WIDTH 12.2 % (12.0-15.0); WHITE BLOOD COUNT 9.8 x10^3/uL (4.8-10.8)
[2021-06-30 22:09] LABS: ALBUMIN 4.4 g/dL (3.2-5.5); ALBUMIN/GLOBULIN RATIO 1.1 (1.0-2.2); BILIRUBIN,TOTAL 0.5 mg/dL (0.2-1.0); CALCIUM 9.1 mg/dL (8.5-10.3); CREATININE 0.9 mg/dL (0.4-1.0); TOTAL PROTEIN 8.4 g/dL (6.7-8.2)
[2021-06-30 22:51] LABS: HCG,QUALITATIVE BLOOD NEGATIVE
--- NOTE | 2021-06-30 23:23 | ED Physician Documentation ---
PD HPI FOCAL NEURO - Stated complaint Stated Complaint: LT SIDE WEAKNESS - Chief complaint Chief Complaint: Neuro - History obtained from History obtained from: Patient - Additional information Additional information: Patient comes emergency department chief complaint of left-sided numbness for the last 3 hours. 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 She states the glass shattered and she relates that her entire left side of body had gone numb. She states that this involves her arm, torso, and leg. She fell to the floor and states that she was put in a wheelchair and taken out to her car, which she proceeded to drive, ultimately coming to the hospital. She states she was able to walk into the hospital from her car, but her leg was dragging. Patient denies weakness specifically, but states it is hard for her to move her arm and leg because she cannot feel them very well. She denies any other neurologic symptoms. No difficulty speaking or swallowing. No drooling. No visual changes. No headache. No head injury. The patient has noted that since the numbness started tonight, she has felt somewhat confused and does not remember what year it is or what her address is. She states that all she can think of when asked who the president is is that it is Junior Seth. She also cannot remember her mother's address. Patient is otherwise healthy. She states she is not really been under any stress and is actually loving her brand-new job. She denies any substance use tonight. No other complaints at this time. Review of Systems Ten Systems: 10 systems reviewed and negative Constitutional: reports: Reviewed and negative Eyes: reports: Reviewed and negative Ears: reports: Reviewed and negative Nose: reports: Reviewed and negative Throat: reports: Reviewed and negative Cardiac: reports: Reviewed and negative Respiratory: reports: Reviewed and negative GI: reports: Reviewed and negative : reports: Reviewed and negative Skin: reports: Reviewed and negative Musculoskeletal: reports: Reviewed and negative Neurologic: reports: Numbness Psychiatric: reports: Reviewed and negative Endocrine: reports: Reviewed and negative Immunocompromised: reports: Reviewed and negative PD PAST MEDICAL HISTORY - Past Medical History Past Medical History: Yes Cardiovascular: None Respiratory: None Neuro: None Endocrine/Autoimmune: None GI: Hemorrhoids SPICE CLEANER: Ectopic , 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 : None HEENT: Chronic hearing loss, Other Psych: None Musculoskeletal: None Derm: None - Past Surgical History Past Surgical History: Yes Ortho: Arthroscopic surgery /SPICE CLEANER: Endometrial ablation, Hysterectomy, Oophrectomy HEENT: Myringotomy (tubes) - Present Medications Home Medications: Ambulatory Orders Medication Instructions Recorded Confirmed Cetirizine [ZyrTEC] 10 mg PO BID #60 tablet 03/30/21 Fluticasone [Flonase] 2 sprays ELIANE DAILY 30 Days #16 gm 03/30/21 dexAMETHasone [Decadron] 4 mg PO DAILY #7 tablet 03/30/21 Dexamethasone [Decadron] 12 mg PO DAILY 5 Days #10 tablet 07/01/21 - Allergies Allergies/Adverse Reactions: Allergies Allergy/AdvReac Type Severity Reaction Status Date / Time Penicillins Allergy Intermediate Respiratory Verified 06/30/21 21:29 prednisone Allergy Unknown Verified 06/30/21 21:30 - Social History Does the pt smoke?: No Smoking Status: Never smoker Does the pt drink ETOH?: Yes Does the pt have substance abuse?: No - Immunizations Immunizations are current?: Yes Immunizations: No immun - POLST Patient has POLST: No PD ED PE NORMAL - Vitals Vital signs reviewed: Yes - General General: Alert and oriented X 3, No acute distress, Well developed/nourished - HEENT HEENT: Atraumatic, PERRL, EOMI, Moist mucous membranes - Neck Neck: Supple, no meningeal sign - Cardiac Cardiac: RRR, No murmur - Respiratory Respiratory: No respiratory distress, Clear bilaterally - Abdomen Abdomen: Soft, Non tender, Non distended - Back Back: No spinal TTP - Derm Derm: Normal color, Warm and dry, No rash - Extremities Extremities: No deformity, No edema - Neuro Neuro: Alert and oriented X 3, presentation manager 2-12 intact, Normal speech, Other (Patient states she cannot feel any sort of touch during exam on her left arm, left torso, and left leg decreased motor activity during the exam, though patient is noted to move her arm and her leg spontaneously while we are talking.) - Psych Psych: Normal mood, Normal affect Results - Vitals Vitals: Vital Signs - 24 hr 06/30/21 06/30/21 06/30/21 21:25 21:47 23:29 Temperature 36.2 C L 36.4 C L Heart Rate 113 H 103 H 101 H Respiratory 14 24 20 Rate Blood Pressure 147/113 H 137/74 H 142/88 H O2 Saturation 98 100 100 07/01/21 07/01/21 01:05 01:51 Temperature 36.4 C L Heart Rate 97 91 Respiratory 23 20 Rate Blood Pressure 135/88 H 137/85 H O2 Saturation 98 99 Oxygen O2 Source Room air - Labs Labs: Laboratory Tests 06/30/21 06/30/21 06/30/21 00:10 21:50 21:50 WBC 9.8 RBC 4.35 Hgb 13.0 Hct 38.9 MCV 89.4 MCH 29.9 MCHC 33.4 RDW 12.2 Plt Count 290 MPV 9.9 Neut # (Auto) 6.0 Lymph # (Auto) 3.1 [place] # (Auto) 0.6 Eos # (Auto) 0.1 Baso # (Auto) 0.0 Absolute Nucleated RBC 0.00 Nucleated RBC % 0.0 Sodium 140 Potassium 4.0 Chloride 104 Carbon Dioxide 25 Anion Gap 11.0 BUN 17 Creatinine 0.9 Estimated GFR (MDRD) 75 L Glucose 96 Calcium 9.1 Total Bilirubin 0.5 AST 28 ALT 27 Alkaline Phosphatase 45 Total Protein 8.4 H Albumin 4.4 Globulin 4.0 Albumin/Globulin Ratio 1.1 Lipase 38 Serum HCG, Qual Urine Color Urine Clarity Urine pH Ur Specific [place] Urine Protein Urine Glucose (UA) Urine Ketones Urine Occult Blood Urine Nitrite Urine Bilirubin Urine Urobilinogen Ur Leukocyte Esterase Urine RBC Urine WBC Ur Squamous Epith Cells Urine Bacteria Urine Culture Comments Urine Opiates Screen Ur Oxycodone Screen Urine Methadone Screen Ur Propoxyphene Screen Ur Barbiturates Screen Ur Tricyclics Screen Ur Phencyclidine Scrn Ur Amphetamine Screen U Methamphetamines Scrn U Benzodiazepines Scrn Urine Cocaine Screen U Cannabinoids Screen Ethyl Alcohol < 5.0 06/30/21 07/01/21 07/01/21 21:50 00:35 00:35 WBC RBC Hgb Hct MCV MCH MCHC RDW Plt Count MPV Neut # (Auto) Lymph # (Auto) [place] # (Auto) Eos # (Auto) Baso # (Auto) Absolute Nucleated RBC Nucleated RBC % Sodium Potassium Chloride Carbon Dioxide Anion Gap BUN Creatinine Estimated GFR (MDRD) Glucose Calcium Total Bilirubin AST ALT Alkaline Phosphatase Total Protein Albumin Globulin Albumin/Globulin Ratio Lipase Serum HCG, Qual NEGATIVE Urine Color YELLOW Urine Clarity HAZY Urine pH 5.5 Ur Specific [place] 1.025 Urine Protein NEGATIVE Urine Glucose (UA) NEGATIVE Urine Ketones NEGATIVE Urine Occult Blood TRACE-INTA Urine Nitrite NEGATIVE Urine Bilirubin NEGATIVE Urine Urobilinogen 0.2 (NORMAL) Ur Leukocyte Esterase NEGATIVE Urine RBC 0-5 Urine WBC 4-5 Ur Squamous Epith Cells MANY Squamous H Urine Bacteria Moderate H Urine Culture Comments NOT INDICATED Urine Opiates Screen NEGATIVE Ur Oxycodone Screen NEGATIVE Urine Methadone Screen NEGATIVE Ur Propoxyphene Screen NEGATIVE Ur Barbiturates Screen NEGATIVE Ur Tricyclics Screen NEGATIVE Ur Phencyclidine Scrn NEGATIVE Ur Amphetamine Screen NEGATIVE U Methamphetamines Scrn NEGATIVE U Benzodiazepines Scrn NEGATIVE Urine Cocaine Screen NEGATIVE U Cannabinoids Screen NEGATIVE Ethyl Alcohol - Rads (name of study) ct/cta head Radiology: Final report received, EMP read indepedently, See rad report (neg) CTA neck Radiology: Final report received, EMP read indepedently, See rad report (neg) PD MEDICAL DECISION MAKING - ED course Complexity details: reviewed results, re-evaluated patient, considered ericka quiroz d/w patient ED course: The patient was worked up with labs, urinalysis, urine drug screen, and ultimately, CT angiograms of the head and neck. Her work-up was negative. I was not sure what to make of this patient's left-sided numbness. It did seem to originate right at the neck and patient reported decreased sensation all the way down the left side of her back and lateral and anterior torso, as well as extremities. Given the distribution and the presence of selective confusion in the setting of mental clarity otherwise, I was concerned that the patient may h ave a possible mental health condition. She was very lucid and appropriately conversant otherwise, and I did not feel she needed emergent intervention after testing came back negative. However, I discussed with the patient that while I expect her symptoms to blow over, if she continues to have the memory issues and certainly if she has any worsening of her symptoms, she will need to follow-up with her primary doctor to further sort things out. At this point in time patient is stable for discharge home. Her best friend has come to pick her up here. Departure - Departure Disposition: 01 Home, Self Care Clinical Impression: Paresthesia Radiculopathy Qualifiers: Spinal region: unspecified Qualified Code(s): M54.10 - Radiculopathy, site unspecified Condition: Stable Instructions: ED Cervical Radiculopathy, ED Paraesthesias Prescriptions: Dexamethasone [Decadron] 12 mg PO DAILY 5 Days #10 tablet Comments: Extensive testing does not reveal a stroke of any kind, and does not reveal any displacement of the bones of your neck. Your blood work and urine testing look good. It is not clear what is caused your episode tonight, though you may have a pinched nerve Causing the numbness. Given the loss of certain information that you would usually know, in the setting of being clear minded otherwise, a mental health condition should also be considered. For now, we will let you go home and get some rest. You should drink plenty of fluids and get a good healthy meal. If you are still experiencing inability to remember certain avery information, you should talk to your doctor about having a mental status/mental health exam to further sort out what is going on. At this point in time, no emergent condition has been identified involving your brain or spinal cord. Discharge Date/Time: 07/01/21 01:51
[2021-06-30] MEDS ORDERED: IOPAMIDOL-300 100 ML VIAL ONE (23:28)
[2021-07-01] MEDS ORDERED: IOPAMIDOL-300 100 ML VIAL IVP ONE (00:01)
[2021-07-01] MEDS ORDERED: ASPIRIN CHEW 81 MG TABLET PO STA (00:28)
[2021-07-01 00:39] LABS: MUDS CUTOFF CONCENTRATIONS CUTOFF CONC BELOW:
[2021-07-01 00:41] LABS: BILIRUBIN,URINE NEGATIVE (NEGATIVE); GLUCOSE, URINE (UA) NEGATIVE (NEGATIVE); KETONES,URINE (UA) NEGATIVE (NEGATIVE); LEUKOCYTE ESTERASE, URINE NEGATIVE (NEGATIVE); NITRITE,URINE NEGATIVE (NEGATIVE); OCCULT BLOOD,URINE TRACE-INTA (NEGATIVE); PH,URINE 5.5 PH (5.0-7.5); PROTEIN,URINE NEGATIVE (NEGATIVE); UROBILINOGEN,URINE 0.2 (NORMAL) E.U./dL (NORMAL)
[2021-07-01 00:47] LABS: BACTERIA,URINE Moderate /HPF (None Seen); CLARITY,URINE HAZY (CLEAR); RBC,URINE 0-5 /HPF (0-5); SQUAMOUS EPITHELIAL CELL,UR MANY Squamous (<= Few)
[2021-07-01 00:51] LABS: AMPHETAMINE SCREEN,URINE NEGATIVE (NEGATIVE); BARBITURATE SCREEN,UR NEGATIVE (NEGATIVE); BENZODIAZEPINES SCREEN, URINE NEGATIVE (NEGATIVE); COCAINE SCREEN URINE NEGATIVE (NEGATIVE); METHADONE SCREEN, URINE NEGATIVE (NEGATIVE); METHAMPHETAMINES SCREEN, URINE NEGATIVE (NEGATIVE); OPIATE SCREEN, URINE NEGATIVE (NEGATIVE); OXYCODONE SCREEN, URINE NEGATIVE (NEGATIVE); PROPOXYPHENE SCREEN, URINE NEGATIVE (NEGATIVE); THC CANNABINOID SCREEN, URINE NEGATIVE (NEGATIVE); TRICYCLIC ANTIDEPRESSANT,URINE NEGATIVE (NEGATIVE)
[2021-07-01] MEDS ORDERED: DEXAMETHASONE 10 MG/ML VIAL IV STA (01:25)
[2021-07-01 01:52] VITALS: BP 137/85
--- NOTE | 2021-07-01 08:50 | CT Report ---
PROCEDURE: ANGIO HEAD W/WO INDICATIONS: L body numbness CONTRAST: IV CONTRAST: Isovue 300 ml: 80 PO CONTRAST: *NO PO CONTRAST TECHNIQUE: Precontrast 4.5 mm thick angled axial sections acquired from the foramen magnum to the vertex. Afte r the administration of intravenous contrast, 1 mm thick sections acquired through the [place] of [place] is. Postcontrast 4.5 mm thick sections then re-acquired from the foramen magnum to the vertex. 3-di mensional eyiqvzi-ryitkywfm-gmmairxdko (MIP) and/or volume rendering reformats were acquired of the c entral intracranial vasculature. For radiation dose reduction, the following was used: automated ex posure control, adjustment of mA and/or kV according to patient size. COMPARISON: None. FINDINGS: Image quality: Excellent. Anterior circulation: Intracranial internal carotid arteries are normal in size and flow. The flow within the paired anterior cerebral arteries is normal and symmetric. The flow within the middle cer ebral arteries is normal and symmetric. The anterior communicating artery is seen. No aneurysms are seen. Posterior circulation: The right vertebral artery is very diminutive and terminates in PICA with no c ontribution to the basilar circulation. The left V4 segment is normal in appearance. The basilar pablito ry is normal in caliber and opacification. Posterior cerebral arteries opacify normally. CSF spaces: Ventricles are normal in size and shape. Basal cisterns are patent. No extra-axial flu id collections. Brain: No midline shift. No intracranial bleeds or masses. [place]-white matter interface appears int act. Skull and face: Calvarium and facial bones appear intact, without suspicious lesions. Sinuses: Visualized sinuses and mastoids are clear. IMPRESSION: No acute intracranial finding. Very diminutive right vertebral artery which terminates in PICA with no contribution to the basilar c irculation. No imaging evidence for significant stenosis or occlusion of the major intracranial arterial vasculat ure. Reviewed by: Rizwan Dozier MD on 07/01/2021 8:48 AM PDT Approved by: Rizwan Dozier MD on 07/01/2021 8:48 AM PDT Station ID: [id number]
--- NOTE | 2021-07-01 08:51 | CT Report ---
PROCEDURE: ANGIO NECK W INDICATIONS: L body sensory loss CONTRAST: IV CONTRAST: Isovue 300 ml: 80 PO CONTRAST: *NO PO CONTRAST TECHNIQUE: After the administration of intravenous contrast, 1.5 mm axial sections acquired from the aortic arch to the [place] of [place]. Coronal 3-D maximum intensity projection (MIP) and/or volume rendering ref ormats were then performed. For radiation dose reduction, the following was used: automated exposur e control, adjustment of mA and/or kV according to patient size. COMPARISON: None. FINDINGS: Image quality: Excellent. Carotid system: The great vessels demonstrate a conventional anatomy as they arise from the aortic a rc. The origins of the common carotid arteries appear patent. The common carotid arteries demonstr ate normal calibers and courses. The bifurcation regions appear normal bilaterally. The internal ca rotid arteries demonstrate normal caliber and course. Posterior circulation: Diminutive right vertebral artery which terminates in PICA with no contributio n to the basilar circulation. Left vertebral artery is unremarkable. Soft tissues: Visualized neck soft tissues demonstrate no suspicious abnormalities. The thyroid is normal in size and there are no incidental findings. Bones: No suspicious bony lesions. Visualized cervical spine appears normally aligned. IMPRESSION: Hypoplastic diminutive vertebral artery which terminates in PICA with no contrast reaction to the bas ilar circulation. No focal occlusion or even a likely significant stenosis of the major extracranial arterial circulati on. No significant change from preliminary report. The estimate of stenosis included in the report of the imaging study was calculated using the NASCET method CLINICAL RECOMMENDATION STATEMENTS: In patients <35 years with an ITN detected on CT, MRI, or extrathyroidal ultrasound, the Committee re commends further evaluation with dedicated thyroid ultrasound if the nodule is ?1 cm and has no suspi cious imaging features, and if the patient has normal life expectancy. In patients ?35 years with an ITN detected on CT, MRI, or extrathyroidal ultrasound, the Committee re commends further evaluation with dedicated thyroid ultrasound if the nodule is ?1.5 cm and has no shanique picious imaging features, and if the patient has normal life expectancy. (ACR, 2014) Reviewed by: Rizwan Dozier MD on 07/01/2021 8:50 AM PDT Approved by: Rizwan Dozier MD on 07/01/2021 8:50 AM PDT Station ID: [id number]
== END 2021-07-01 01:51 | disposition home or self-care (01) ==
LOC: ED 21:17
DX: R20.2 Paresthesia of skin (principal); M54.10 Radiculopathy, site unspecified; R41.82 Altered mental status, unspecified
CPT/HCPCS: 36415; 70496; 70498; 80053; 80306; 80320; 81001; 83690; 84703; 85025; 96360; 99284; Q9967; 87086

== ENCOUNTER 2021-10-08 09:11 | Emergency (ER) | payer MEDICAID ==
[2021-10-08] MEDS ORDERED: CHERRY SYRUP 10 ML UDC PO ONE (10:13)
[2021-10-08] MEDS ORDERED: DEXAMETHASONE 10 MG/ML VIAL PO STA (10:13)
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
[2021-10-08 10:57] VITALS: BP 180/103
== END 2021-10-08 10:57 | disposition home or self-care (01) ==
LOC: ED 09:11
DX: G90.511 Complex regional pain syndrome I of right upper limb (principal); R03.0 Elevated blood-pressure reading, without diagnosis of hypertension
CPT/HCPCS: 99282; 99284; A9270

== ENCOUNTER 2023-02-19 20:33 | Emergency (ER) | payer MEDICAID ==
--- NOTE | 2023-02-19 21:00 | ED Physician Documentation ---
PD HPI UPPER EXT INJURY - Stated complaint Stated Complaint: FELL, L SHOULDER PX - Chief complaint Chief Complaint: Trauma Ext - Additonal information Additional information: 26-year-old female presents with left collarbone and shoulder pain after a fall. The patient states she slipped off a ladder about 5 feet tall In states she tucked and rolled onto her left shoulder to avoid hitting her head. She denies any other injuries, denies hitting her head, no loss of consciousness, no neck or back pain. Pain is localized to the left collarbone and radiates down the left shoulder and upper arm to the elbow. She has difficulty raising the arm away from the body. She has not attempted any treatment or medication for this. Review of Systems Constitutional: reports: Reviewed and negative Cardiac: reports: Reviewed and negative Respiratory: reports: Reviewed and negative GI: reports: Reviewed and negative : reports: Reviewed and negative Skin: reports: Reviewed and negative Musculoskeletal: reports: Extremity pain, Joint pain. 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 , 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 : None HEENT: Chronic hearing loss, Other Psych: None Musculoskeletal: None Derm: None - Past Surgical History Past Surgical History: Yes Ortho: Arthroscopic surgery /HORTICULTURE WORKER: Endometrial ablation, Hysterectomy, Oophrectomy HEENT: Myringotomy (tubes) - Present Medications Home Medications: Ambulatory Orders Medication Instructions Recorded Confirmed Cetirizine [ZyrTEC] 10 mg PO BID #60 tablet 03/30/21 Fluticasone [Flonase] 2 sprays ELIANE DAILY 30 Days #16 gm 03/30/21 dexAMETHasone [Decadron] 4 mg PO DAILY #7 tablet 03/30/21 dexAMETHasone [Decadron] 12 mg PO DAILY 5 Days #10 tablet 07/01/21 - Allergies Allergies/Adverse Reactions: Allergies Allergy/AdvReac Type Severity Reaction Status Date / Time Penicillins Allergy Intermediate Respiratory Verified 02/19/23 20:52 gabapentin Allergy Rash Verified 02/19/23 20:52 prednisone Allergy Unknown Verified 02/19/23 20:52 - Social History Does the pt smoke?: No Smoking Status: Never smoker Does the pt drink ETOH?: Yes Does the pt have substance abuse?: No - Immunizations Immunizations are current?: Yes Immunizations: No immun - POLST Patient has POLST: No PD ED PE NORMAL - Vitals Vital signs reviewed: Yes - General General: Alert and oriented X 3, No acute distress, Well developed/nourished - HEENT HEENT: Atraumatic, Pharynx benign - Neck Neck: C-Spine cleared by NEXUS criteria - Cardiac Cardiac: RRR, No murmur - Respiratory Respiratory: No respiratory distress, Clear bilaterally - Back Back: No CVA TTP, No spinal TTP - Derm Derm: Normal color, Warm and dry, No rash - Extremities Extremities: No deformity, Other (Tenderness of the left clavicle without any obvious deformity, tenderness of the left shoulder and left humerus without deformity swelling abrasion contusion. Patient can raise left arm to shoulder level but no higher due to pain, abduction. Positive impingement signs.) - Neuro Neuro: Alert and oriented X 3 Eye Opening: Spontaneous Motor: Obeys Commands Verbal: Oriented GCS Score: 15 - Psych Psych: Normal mood, Normal affect Results - Vitals Vitals: Vital Signs - 24 hr 02/19/23 02/19/23 20:40 21:45 Temperature 36.5 C Heart Rate 97 84 Respiratory 16 18 Rate Blood Pressure 147/100 H 142/94 H O2 Saturation 100 100 Oxygen O2 Source Room air - Rads (name of study) No standard instances Relevant Findings:: Final report received PD Medical Decision Making - ED course Complexity details: reviewed results, d/w patient ED course: 27-year-old female presented after a fall from ladder as described in HPI. The patient presents with left shoulder pain, denies any other injuries. She has no head injuries, no head neck or back injuries. Her left shoulder appears normal on physical exam, there is no obvious dislocation, no palpable deformity. She does have decreased range of motion and mild impingement signs. We obtained an x-ray which shows no fracture or dislocation, possible mild calcific tendinitis. Patient was advised to utilize supportive measures including cool compress, Tylenol and ibuprofen for pain. I have given her a sling for comfort but advised to take the shoulder out of the sling and do range of motion exercises several times each day. If no improvement in next week or 2, patient advised to see PCP, consider outpatient physical therapy. Return precautions reviewed. Departure - Departure Disposition: 01 Home, Self Care Clinical Impression: Shoulder injury Qualifiers: Encounter type: initial encounter Laterality: left Qualified Code(s): S49.92XA - Unspecified injury of left shoulder and upper arm, initial encounter Condition: Good Instructions: ED Contusion Shoulder Comments: You presented w/ a left shoulder injury. The xray does not show signs of dislocation or fracture/break. You May have sustained a muscle contusion/bruise or potentially ligament injuries that we cannot see on x-ray. Please utilize ibuprofen and Tylenol and do light range of motion activity as long as it is not terribly painful, and symptoms should improve in the next several days to week. I have provided a sling for you but it is important to remove the arm from the sling and try to do range of motion activities several times a day to avoid frozen shoulder. If you have no improvement in your shoulder pain, please follow up with your primary doctor or return to the ER as needed. Discharge Date/Time: 02/19/23 21:45
--- OUTSIDE RECORDS SUMMARY | 2023-02-19 21:09 | EXTERNAL MEDICAL SUMMARY RPT | Continuity of Care Document ---
:1995 Author Organization [facility] Address [address] [place] [address] Phone Care Team Providers Name Role Phone Megan Pendleton Unavailable Unavailable Allergies and Intolerances date description facility type (no date) gabapentin [facility] (unknown) (no date) penicillin G [facility] (unknown) (no date) prednisone [facility] (unknown) Encounters No information. Functional Status No information. Immunizations No information. Medications date description facility 2023-01-19 00:00 Cetirizine [facility] 2023-01-19 00:00 [facility] Problems date description facility 2023-01-19 00:00 Bilateral acute suppurative otitis medi [facility] Procedures No information. Results/Labs test date author facility value unit interpret ation Result panel 1 (unknown) (no (unknown) (unknown) (no value) (units (unk nown) date) unknown) (unknown) (no (unknown) (unknown) <Electronically (units (unknown) date) signed by Karen NAVARRO Crew> (unknown) (no (unknown) (unknown) *If you do not (units (unknown) date) have a primary unknown) care provider please contact [phone] to (unknown) (no (unknown) (unknown) *Please continue (units (unknown) date) to take your unknown) regular medications as directed. (unknown) (no (unknown) (unknown) *Please follow up (units (unknown) date) with your primary unknown) care provider in 2-3 days, call for an (unknown) (no (unknown) (unknown) *Return to (units (unk nown) date) Emergency unknown) Department if you should have any new, worsening, or (unknown) (no (unknown) (unknown) *What to do: (units (u nknown) date) unknown) (unknown) (no (unknown) (unknown) *You have been (units (unknown) date) diagnosed with unknown) bilateral ear infection without rupture of the (unknown) (no (unknown) (unknown) 01/19/23 1540 (units ( unknown) date) unknown) (unknown) (no (unknown) (unknown) 01/19/23 (units (unkno wn) date) unknown) (unknown) (no (unknown) (unknown) 1 applic topical (units (unknown) date) TID Qty: 57 0RF unknown) (unknown) (no (unknown) (unknown) 10 mg PO TID PRN (units (unknown) date) (Reason: muscle unknown) spasm) Qty: 14 0RF (unknown) (no (unknown) (unknown) 10 mg PO TID PRN (units (unknown) date) (Reason: pain) unknown) Qty: 15 0RF (unknown) (no (unknown) (unknown) 13:49 (units (unkno wn) date) unknown) (unknown) (no (unknown) (unknown) 20 mg PO BEDTIME (units (unknown) date) Qty: 40 0RF unknown) (unknown) (no (unknown) (unknown) 300 mg PO BID 10 (units (unknown) date) Days Qty: 20 0RF unknown) (unknown) (no (unknown) (unknown) Activity (units (unkno wn) date) Restrictions/Addit unknown) ional Instructions: (unknown) (no (unknown) (unknown) Age/Sex: 27 / F (units (unknown) date) unknown) (unknown) (no (unknown) (unknown) Allergies (units (unkn own) date) unknown) (unknown) (no (unknown) (unknown) Allergy/AdvReac (units (unknown) date) Type Severity unknown) Reaction Status Date / Time (unknown) (no (unknown) (unknown) Bilateral acute (units (unknown) date) suppurative otitis unknown) media (unknown) (no (unknown) (unknown) Blood Pressure (units (unknown) date) 159/103 H 01/19/23 unknown) 13:49 (unknown) (no (unknown) (unknown) Blood Pressure (units (unknown) date) 159/103 H unknown) (unknown) (no (unknown) (unknown) Cardiovascular: (units (unknown) date) Initially patient unknown) was tachycardic and this is likely related to (unknown) (no (unknown) (unknown) Ceftriaxone (units (un known) date) Sodium unknown) (Ceftriaxone 2,000 Mg Vial) 1,000 mg IM NOW ONE (unknown) (no (unknown) (unknown) Chief Complaint: (units (unknown) date) Bilateral ear pain unknown) (unknown) (no (unknown) (unknown) Chief complaint: (units (unknown) date) Ear unknown) (unknown) (no (unknown) (unknown) Clinical (units (o wn) date) Impression: unknown) (unknown) (no (unknown) (unknown) Course (units (unkno wn) date) unknown) (unknown) (no (unknown) (unknown) : 1995 (units (unknown) date) Acct:[id number] unknown) (unknown) (no (unknown) (unknown) Date of Service: (units (unknown) date) 01/19/23 unknown) (unknown) (no (unknown) (unknown) Departure (units (unkn own) date) unknown) (unknown) (no (unknown) (unknown) Desitin 40 % (units (u nknown) date) paste unknown) (unknown) (no (unknown) (unknown) Dexamethasone (units ( unknown) date) (Dexamethasone 10 unknown) Mg/Ml Vial) 10 mg PO NOW ONE (unknown) (no (unknown) (unknown) Differential (units (u nknown) date) diagnoses include unknown) but are not limited to: Otitis media, ruptured (unknown) (no (unknown) (unknown) Discharge Plan (units (unknown) date) unknown) (unknown) (no (unknown) (unknown) Discontinued (units (u nkn) date) Medications unknown) (unknown) (no (unknown) (unknown) ER Physician: (units ( unknown) date) Karen Leyva unknown) [employer]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 (unknown) (no (unknown) (unknown) Emergency Report (units (unknown) date) unknown) (unknown) (no (unknown) (unknown) Exam (units (o wn) date) unknown) (unknown) (no (unknown) (unknown) General (units (unkno wn) date) unknown) (unknown) (no (unknown) (unknown) General: (units (o wn) date) cooperative, unknown) comfortable, in no acute distress, well groomed (unknown) (no (unknown) (unknown) HEENT: (units (unkno wn) date) symmetrical facial unknown) expressions, moist mucous membranes, bilateral (unknown) (no (unknown) (unknown) HPI - Ear Problem (units (unknown) date) unknown) (unknown) (no (unknown) (unknown) HPI Narrative: (units (unknown) date) unknown) (unknown) (no (unknown) (unknown) Yves Palm MD (units (unknown) date) [Physician] - 5-7 unknown) days (unknown) (no (unknown) (unknown) History of (units (unk nown) date) Present Illness unknown) (unknown) (no (unknown) (unknown) I have (units (unkno wn) date) independently unknown) reviewed the patient's vital signs and nursing notes as (unknown) (no (unknown) (unknown) Independent (units (un known) date) historian: Patient unknown) (unknown) (no (unknown) (unknown) Initial Vital (units ( unknown) date) Signs unknown) (unknown) (no (unknown) (unknown) Initial Vital (units ( unknown) date) Signs: unknown) (unknown) (no (unknown) (unknown) Instructions: (units ( unknown) date) Middle Ear unknown) Infection (unknown) (no (unknown) (unknown) [facility] (units (unknown) date) [address] [place] [address] unknown) [place] [address] (unknown) (no (unknown) (unknown) Ketorolac (units (unkn own) date) Tromethamine unknown) (Ketorolac 10 Mg Tablet) 10 mg PO NOW ONE (unknown) (no (unknown) (unknown) Lidocaine HCl (units ( unknown) date) (Lidocaine 1% (Pf) unknown) 5 Ml) 4.2 ml INJ NOW ONE (unknown) (no (unknown) (unknown) [id number] (units (unk nown) date) unknown) (unknown) (no (unknown) (unknown) MDM Narrative (units ( unknown) date) unknown) (unknown) (no (unknown) (unknown) MIPS: This (units (unk nown) date) encounter doesn't unknown) have any diagnosis' associated with MIPS criteria. (unknown) (no (unknown) (unknown) Medical Decision (units (unknown) date) Making unknown) (unknown) (no (unknown) (unknown) Medical decision (units (unknown) date) making narrative: unknown) (unknown) (no (unknown) (unknown) Medication (units (unk nown) date) Instructions unknown) Recorded (unknown) (no (unknown) (unknown) Mode of arrival: (units (unknown) date) Ambulatory unknown) (unknown) (no (unknown) (unknown) Neuro: normal (units ( unknown) date) speech and unknown) cognition, A+O x3, ambulatory, clear speech complains (unknown) (no (unknown) (unknown) New (units (unkno wn) date) unknown) (unknown) (no (unknown) (unknown) No Action (units (unkn own) date) unknown) (unknown) (no (unknown) (unknown) Ordered: (units (unkno wn) date) unknown) (unknown) (no (unknown) (unknown) Orders (units (unkno wn) date) unknown) (unknown) (no (unknown) (unknown) Oxygen Delivery (units (unknown) date) Method Room Air unknown) 01/19/23 13:49 (unknown) (no (unknown) (unknown) Oxygen Delivery (units (unknown) date) Method Room Air unknown) (unknown) (no (unknown) (unknown) Patient (units (unkno wn) date) Disposition: Home unknown) (unknown) (no (unknown) (unknown) Patient History (units (unknown) date) unknown) (unknown) (no (unknown) (unknown) Patient is (units (unk nown) date) appropriate for unknown) outpatient management. (unknown) (no (unknown) (unknown) Patient's pain (units (unknown) date) was treated with unknown) Toradol, she is nontoxic appearing, without TM (unknown) (no (unknown) (unknown) Patient: (units (unkno wn) date) Keisha Villeda F unknown) MR#: (unknown) (no (unknown) (unknown) Prescriptions: (units (unknown) date) unknown) (unknown) (no (unknown) (unknown) Previous Rx's (units ( unknown) date) unknown) (unknown) (no (unknown) (unknown) Psych: mental (units ( unknown) date) status is grossly unknown) normal, congruent mood, normal affect, pleasant (unknown) (no (unknown) (unknown) Pulse Oximetry 98 (units (unknown) date) 01/19/23 13:49 unknown) (unknown) (no (unknown) (unknown) Pulse Oximetry 98 (units (unknown) date) unknown) (unknown) (no (unknown) (unknown) Pulse Rate 100 H (units (unknown) date) 01/19/23 13:49 unknown) (unknown) (no (unknown) (unknown) Pulse Rate 100 H (units (unknown) date) unknown) (unknown) (no (unknown) (unknown) Qualifiers: (units (un known) date) unknown) (unknown) (no (unknown) (unknown) Questions are (units ( unknown) date) addressed and unknown) there is agreement with the plan and for follow-up. (unknown) (no (unknown) (unknown) ROS Unobtainable: (units (unknown) date) All systems unknown) reviewed + are unremarkable except as noted in HPI (unknown) (no (unknown) (unknown) Recurrence: (units (un known) date) recurrent unknown) Spontaneous tympanic membrane rupture: without (unknown) (no (unknown) (unknown) Referrals: (units (unk nown) date) unknown) (unknown) (no (unknown) (unknown) Related Data (units (u nknown) date) unknown) (unknown) (no (unknown) (unknown) Respiratory Rate (units (unknown) date) 18 01/19/23 13:49 unknown) (unknown) (no (unknown) (unknown) Respiratory Rate (units (unknown) date) 18 unknown) (unknown) (no (unknown) (unknown) Review of Systems (units (unknown) date) unknown) (unknown) (no (unknown) (unknown) Reviewed vitals (units (unknown) date) signs and nursing unknown) notes. (unknown) (no (unknown) (unknown) Megan Pendleton, (units (unknown) date) PA-C [Primary Care unknown) Provider] (unknown) (no (unknown) (unknown) Signed By: (units (unk nown) date) unknown) (unknown) (no (unknown) (unknown) Skin: brisk (units (un known) date) capillary refill, unknown) without pallor or erythema (unknown) (no (unknown) (unknown) Smoking Status: (units (unknown) date) Never smoker unknown) (unknown) (no (unknown) (unknown) Social History (units (unknown) date) (Reviewed 09/25/21 unknown) @ 00:40 by Isela Velazquez DO) (unknown) (no (unknown) (unknown) Social (units (unkno wn) date) considerations unknown) that may affect disposition: none (unknown) (no (unknown) (unknown) Source: patient (units (unknown) date) unknown) (unknown) (no (unknown) (unknown) Stand Alone (units (un known) date) Forms: Patient unknown) Portal/API (unknown) (no (unknown) (unknown) Stated complaint: (units (unknown) date) ruptured both unknown) eardrum clear liquid coming out (unknown) (no (unknown) (unknown) Stop: 01/19/23 (units (unknown) date) 15:20 unknown) (unknown) (no (unknown) (unknown) Stop: 01/19/23 (units (unknown) date) 15:22 unknown) (unknown) (no (unknown) (unknown) Substance Use (units ( unknown) date) Type: does not use unknown) (unknown) (no (unknown) (unknown) Temperature 98.6 (units (unknown) date) F 01/19/23 13:49 unknown) (unknown) (no (unknown) (unknown) Temperature 98.6 (units (unknown) date) F unknown) (unknown) (no (unknown) (unknown) This is a 27 year (units (unknown) date) female presents to unknown) the emergency department complaining of (unknown) (no (unknown) (unknown) Throat for (units (unk nown) date) recheck and to unknown) tell him that it is more urgent if she is having (unknown) (no (unknown) (unknown) Time Seen by (units (u nknown) date) Provider: 01/19/23 unknown) 15:12 (unknown) (no (unknown) (unknown) [place] until (units (u nknown) date) February. She had unknown) antibiotics for 6 days, had recurrence of otitis (unknown) (no (unknown) (unknown) Vital Signs - 8 (units (unknown) date) hr unknown) (unknown) (no (unknown) (unknown) Vital Signs (units (un known) date) unknown) (unknown) (no (unknown) (unknown) Vital signs: (units (u nknown) date) unknown) (unknown) (no (unknown) (unknown) [ ] New (units (unkno wn) date) medication written unknown) as a paper prescription (unknown) (no (unknown) (unknown) [ ] No new (units (unk nown) date) medications given unknown) (unknown) (no (unknown) (unknown) [x ] New (units (unkno wn) date) medication unknown) prescriptions sent to your pharmacy: [ [facility]] (unknown) (no (unknown) (unknown) afebrile (units (unkno wn) date) unknown) (unknown) (no (unknown) (unknown) and a half ago. (units (unknown) date) Her primary care unknown) provider is Veda NAVARRO, states that (unknown) (no (unknown) (unknown) and below (units (unkn own) date) unknown) (unknown) (no (unknown) (unknown) and cooperative (units (unknown) date) unknown) (unknown) (no (unknown) (unknown) any doses. I hope (units (unknown) date) you start feeling unknown) better soon. (unknown) (no (unknown) (unknown) appointment. Let (units (unknown) date) them know you were unknown) seen in the Emergency Department and that we (unknown) (no (unknown) (unknown) as well to (units (unk nown) date) decongestant unknown) middle ear and encouraged to stay hydrated use Tylenol (unknown) (no (unknown) (unknown) asked that you be (units (unknown) date) seen for unknown) follow-up. We will electronically transmit a record (unknown) (no (unknown) (unknown) bilateral ear (units ( unknown) date) infection. She unknown) denies remember what medication was, states that (unknown) (no (unknown) (unknown) bilateral ear (units ( unknown) date) pain which has unknown) returned after she took antibiotics for 6 days for (unknown) (no (unknown) (unknown) bilaterally. (units (u nknown) date) Encourage patient unknown) to follow-up with Dr. Palm from [facility] and (unknown) (no (unknown) (unknown) but not (units (unkno wn) date) prednisone. States unknown) reaction prednisone caused her to drive slowly. (unknown) (no (unknown) (unknown) can not wait that (units (unknown) date) long. She does not unknown) take any antihistamines, is not currently (unknown) (no (unknown) (unknown) canal pain but (units (unknown) date) denies tenderness unknown) to manipulation of the pinna of her ear. She (unknown) (no (unknown) (unknown) cefdinir 300 mg (units (unknown) date) capsule 300 mg PO unknown) BID 10 days #20 caps 01/19/23 (unknown) (no (unknown) (unknown) cefdinir 300 mg (units (unknown) date) capsule unknown) (unknown) (no (unknown) (unknown) cephalosporins in (units (unknown) date) the past. Patient unknown) states that she is tolerant to all steroids (unknown) (no (unknown) (unknown) cetirizine 10 mg (units (unknown) date) tablet 20 mg PO unknown) BEDTIME #40 tabs 01/19/23 (unknown) (no (unknown) (unknown) cetirizine 10 mg (units (unknown) date) tablet unknown) (unknown) (no (unknown) (unknown) concerning (units (unk nown) date) symptoms, such as unknown) [fever greater than 101F, chills, worsening pain, (unknown) (no (unknown) (unknown) cyclobenzaprine (units (unknown) date) 10 mg tablet 10 mg unknown) PO TID PRN muscle spasm #14 07/20/20 (unknown) (no (unknown) (unknown) cyclobenzaprine (units (unknown) date) 10 mg tablet unknown) (unknown) (no (unknown) (unknown) days and gave her (units (unknown) date) 1 g IM ceftriaxone unknown) in the emergency department, if patient (unknown) (no (unknown) (unknown) denies nausea, (units (unknown) date) vomiting, denies unknown) neck pain but states that she has swollen lymph (unknown) (no (unknown) (unknown) discharge, (units (unk nown) date) patient has unknown) anterior cervical lymphadenopathy, neck is supple, full (unknown) (no (unknown) (unknown) establish care (units (unknown) date) with one of the unknown) [facility] primary care providers. (unknown) (no (unknown) (unknown) external ear (units (un known) date) canals are normal unknown) without tenderness with manipulation, there is no (unknown) (no (unknown) (unknown) gabapentin (units (unk nown) date) Allergy Rash unknown) Verified 01/19/23 13:55 (unknown) (no (unknown) (unknown) her ears but (units (u nknown) date) states that the unknown) pain got a lot worse. She states that she has ear (unknown) (no (unknown) (unknown) however I was (units ( unknown) date) concerned about unknown) recurrence. I prescribed for patient cetirizine (unknown) (no (unknown) (unknown) ibuprofen for (units ( unknown) date) pain. unknown) (unknown) (no (unknown) (unknown) ketorolac 10 mg (units (unknown) date) tablet 10 mg PO unknown) TID PRN pain #15 tabs 07/20/20 (unknown) (no (unknown) (unknown) ketorolac 10 mg (units (unknown) date) tablet unknown) (unknown) (no (unknown) (unknown) know that you (units ( unknown) date) were seen in the unknown) Emergency Department and he would like to (unknown) (no (unknown) (unknown) media bilaterally (units (unknown) date) without rupture. I unknown) placed her on cefdinir b.i.d. times 10 (unknown) (no (unknown) (unknown) membrane. Please (units (unknown) date) start taking unknown) Zyrtec 20 mg at night for congestion of the (unknown) (no (unknown) (unknown) middle ear until (units (unknown) date) you are fully unknown) better. Please stay hydrated, drink plenty of (unknown) (no (unknown) (unknown) nodes. She denies (units (unknown) date) fever, chills, unknown) vision changes, headaches or other symptom. (unknown) (no (unknown) (unknown) of muffled (units (unk nown) date) hearing however unknown) she is hearing me loud and clear. (unknown) (no (unknown) (unknown) of today's note (units (unknown) date) if your PCP is in unknown) our system (unknown) (no (unknown) (unknown) on an antibiotic, (units (unknown) date) states that the unknown) pain is severe. Denies discharge coming from (unknown) (no (unknown) (unknown) pain, now with (units (unknown) date) regular rate and unknown) rhythm, no peripheral edema, warm extremities, (unknown) (no (unknown) (unknown) palpation (units (unkn own) date) bilaterally, unknown) bilateral TMs are bulging, erythematous and suppurative (unknown) (no (unknown) (unknown) penicillin G (units (u nknown) date) Allergy Unknown unknown) Unverified 09/24/21 21:14 (unknown) (no (unknown) (unknown) persistent (units (unk nown) date) vomiting or other unknown) bothersome symptoms]. (unknown) (no (unknown) (unknown) prednisone (units (unk nown) date) AdvReac Unknown unknown) Verified 01/19/23 13:55 (unknown) (no (unknown) (unknown) range of motion (units (unknown) date) without deficit, unknown) no meningeal signs, mastoids are nontender to (unknown) (no (unknown) (unknown) returns with this (units (unknown) date) pain, she can unknown) receive ceftriaxone instead of cefdinir x3 days (unknown) (no (unknown) (unknown) rupture (units (unkno wn) date) bilaterally, she unknown) has bulging, erythematous and suppurative TMs (unknown) (no (unknown) (unknown) schedule (units (unkno wn) date) follow-up unknown) urgently. Please complete this medication and do not miss (unknown) (no (unknown) (unknown) schedule (units (unkno wn) date) follow-up with Dr. chandler) [facility] from [facility]. Please let them (unknown) (no (unknown) (unknown) she has (units (unkno wn) date) anaphylaxis unknown) allergy to penicillin states this was approximally a week (unknown) (no (unknown) (unknown) she has scheduled (units (unknown) date) follow-up with ear unknown) nose and throat for February but states she (unknown) (no (unknown) (unknown) spontaneous (units (un known) date) rupture Qualified unknown) Code(s): H66.006 - Acute suppurative otitis media (unknown) (no (unknown) (unknown) start taking this (units (unknown) date) oral antibiotic unknown) morning and night for the next 10 days and (unknown) (no (unknown) (unknown) tabs (units (unkno wn) date) unknown) (unknown) (no (unknown) (unknown) topical paste (units ( unknown) date) (Desitin) unknown) (unknown) (no (unknown) (unknown) tympanic (units (unkno wn) date) membrane, unknown) resistant bacteria, middle ear effusion, mastoiditis (unknown) (no (unknown) (unknown) water, take (units (un known) date) Tylenol ibuprofen unknown) as needed for your pain every 6 hours. Please (unknown) (no (unknown) (unknown) well as prior (units ( unknown) date) records if unknown) available. No evidence of patient having (unknown) (no (unknown) (unknown) without rupture. (units (unknown) date) unknown) (unknown) (no (unknown) (unknown) without (units (unkno wn) date) spontaneous unknown) rupture of ear drum, recurrent, bilateral (unknown) (no (unknown) (unknown) worsening of her (units (unknown) date) symptoms. She was unknown) unable to get into ear nose and throat (unknown) (no (unknown) (unknown) zinc oxide-cod (units (unknown) date) liver oil 40 % 1 unknown) applic topical TID #57 grams 09/25/21 Result panel 2 (unknown) (no (unknown) (unknown) (no value) (units (unk nown) date) unknown) (unknown) (no (unknown) (unknown) <Electronically (units (unknown) date) signed by Karen unknown) Niya BORDENP Crew> (unknown) (no (unknown) (unknown) <Electronically (units (unknown) date) signed by Bret unknown) MD Venkat> (unknown) (no (unknown) (unknown) *If you do not (units (unknown) date) have a primary unknown) care provider please contact [phone] to (unknown) (no (unknown) (unknown) *Please continue (units (unknown) date) to take your unknown) regular medications as directed. (unknown) (no (unknown) (unknown) *Please follow up (units (unknown) date) with your primary unknown) care provider in 2-3 days, call for an (unknown) (no (unknown) (unknown) *Return to (units (unk nown) date) Emergency unknown) Department if you should have any new, worsening, or (unknown) (no (unknown) (unknown) *What to do: (units (u nknown) date) unknown) (unknown) (no (unknown) (unknown) *You have been (units (unknown) date) diagnosed with unknown) bilateral ear infection without rupture of the (unknown) (no (unknown) (unknown) 01/19/23 1540 (units ( unknown) date) unknown) (unknown) (no (unknown) (unknown) 01/19/23 (units (unkno wn) date) unknown) (unknown) (no (unknown) (unknown) 01/24/23 1027 (units ( unknown) date) unknown) (unknown) (no (unknown) (unknown) 1 applic topical (units (unknown) date) TID Qty: 57 0RF unknown) (unknown) (no (unknown) (unknown) 10 mg PO TID PRN (units (unknown) date) (Reason: muscle unknown) spasm) Qty: 14 0RF (unknown) (no (unknown) (unknown) 10 mg PO TID PRN (units (unknown) date) (Reason: pain) unknown) Qty: 15 0RF (unknown) (no (unknown) (unknown) 13:49 (units (unkno wn) date) unknown) (unknown) (no (unknown) (unknown) 20 mg PO BEDTIME (units (unknown) date) Qty: 40 0RF unknown) (unknown) (no (unknown) (unknown) 300 mg PO BID 10 (units (unknown) date) Days Qty: 20 0RF unknown) (unknown) (no (unknown) (unknown) Activity (units (unkno wn) date) Restrictions/Addit unknown) ional Instructions: (unknown) (no (unknown) (unknown) Age/Sex: 27 / F (units (unknown) date) unknown) (unknown) (no (unknown) (unknown) Allergies (units (unkn own) date) unknown) (unknown) (no (unknown) (unknown) Allergy/AdvReac (units (unknown) date) Type Severity unknown) Reaction Status Date / Time (unknown) (no (unknown) (unknown) Bilateral acute (units (unknown) date) suppurative otitis unknown) media (unknown) (no (unknown) (unknown) Blood Pressure (units (unknown) date) 159/103 H 01/19/23 unknown) 13:49 (unknown) (no (unknown) (unknown) Blood Pressure (units (unknown) date) 159/103 H unknown) (unknown) (no (unknown) (unknown) Cardiovascular: (units (unknown) date) Initially patient unknown) was tachycardic and this is likely related to (unknown) (no (unknown) (unknown) Ceftriaxone (units (un known) date) Sodium unknown) (Ceftriaxone 2,000 Mg Vial) 1,000 mg IM NOW ONE (unknown) (no (unknown) (unknown) Chief Complaint: (units (unknown) date) Bilateral ear pain unknown) (unknown) (no (unknown) (unknown) Chief complaint: (units (unknown) date) Ear unknown) (unknown) (no (unknown) (unknown) Clinical (units (unkno wn) date) Impression: unknown) (unknown) (no (unknown) (unknown) Course (units (unkno wn) date) unknown) (unknown) (no (unknown) (unknown) : 1995 (units (unknown) date) Acct:[id number] unknown) (unknown) (no (unknown) (unknown) Date of Service: (units (unknown) date) 01/19/23 unknown) (unknown) (no (unknown) (unknown) Departure (units (unkn own) date) unknown) (unknown) (no (unknown) (unknown) Desitin 40 % (units (u nknown) date) paste unknown) (unknown) (no (unknown) (unknown) Dexamethasone (units ( unknown) date) (Dexamethasone 10 unknown) Mg/Ml Vial) 10 mg PO NOW ONE (unknown) (no (unknown) (unknown) Differential (units (u nknown) date) diagnoses include unknown) but are not limited to: Otitis media, ruptured (unknown) (no (unknown) (unknown) Discharge Plan (units (unknown) date) unknown) (unknown) (no (unknown) (unknown) Discontinued (units (u nknown) date) Medications unknown) (unknown) (no (unknown) (unknown) ER Physician: (units ( unknown) date) Karen Leyva unknown) [employer]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 (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) (no (unknown) (unknown) Emergency Report (units (unknown) date) unknown) (unknown) (no (unknown) (unknown) Exam (units (unkno wn) date) unknown) (unknown) (no (unknown) (unknown) General (units (unkno wn) date) unknown) (unknown) (no (unknown) (unknown) General: (units (unkno wn) date) cooperative, unknown) comfortable, in no acute distress, well groomed (unknown) (no (unknown) (unknown) HEENT: (units (unkno wn) date) symmetrical facial unknown) expressions, moist mucous membranes, bilateral (unknown) (no (unknown) (unknown) HPI - Ear Problem (units (unknown) date) unknown) (unknown) (no (unknown) (unknown) HPI Narrative: (units (unknown) date) unknown) (unknown) (no (unknown) (unknown) Yves Palm MD (units (unknown) date) [Physician] - 5-7 unknown) days (unknown) (no (unknown) (unknown) History of (units (unk nown) date) Present Illness unknown) (unknown) (no (unknown) (unknown) I have (units (unkno wn) date) independently unknown) reviewed the patient's vital signs and nursing notes as (unknown) (no (unknown) (unknown) Independent (units (un known) date) historian: Patient unknown) (unknown) (no (unknown) (unknown) Initial Vital (units ( unknown) date) Signs unknown) (unknown) (no (unknown) (unknown) Initial Vital (units ( unknown) date) Signs: unknown) (unknown) (no (unknown) (unknown) Instructions: (units ( unknown) date) Middle Ear unknown) Infection (unknown) (no (unknown) (unknown) [facility] (units (unknown) date) [address] unknown) [place] [address] (unknown) (no (unknown) (unknown) Ketorolac (units (unkn own) date) Tromethamine unknown) (Ketorolac 10 Mg Tablet) 10 mg PO NOW ONE (unknown) (no (unknown) (unknown) Lidocaine HCl (units ( unknown) date) (Lidocaine 1% (Pf) unknown) 5 Ml) 4.2 ml INJ NOW ONE (unknown) (no (unknown) (unknown) [id number] (units (unk nown) date) unknown) (unknown) (no (unknown) (unknown) MDM Narrative (units ( unknown) date) unknown) (unknown) (no (unknown) (unknown) MIPS: This (units (unk nown) date) encounter doesn't unknown) have any diagnosis' associated with MIPS criteria. (unknown) (no (unknown) (unknown) Medical Decision (units (unknown) date) Making unknown) (unknown) (no (unknown) (unknown) Medical decision (units (unknown) date) making narrative: unknown) (unknown) (no (unknown) (unknown) Medication (units (unk nown) date) Instructions unknown) Recorded (unknown) (no (unknown) (unknown) Mode of arrival: (units (unknown) date) Ambulatory unknown) (unknown) (no (unknown) (unknown) Neuro: normal (units ( unknown) date) speech and unknown) cognition, A+O x3, ambulatory, clear speech complains (unknown) (no (unknown) (unknown) New (units (unkno wn) date) unknown) (unknown) (no (unknown) (unknown) No Action (units (unkn own) date) unknown) (unknown) (no (unknown) (unknown) Ordered: (units (unkno wn) date) unknown) (unknown) (no (unknown) (unknown) Orders (units (unkno wn) date) unknown) (unknown) (no (unknown) (unknown) Oxygen Delivery (units (unknown) date) Method Room Air unknown) 01/19/23 13:49 (unknown) (no (unknown) (unknown) Oxygen Delivery (units (unknown) date) Method Room Air unknown) (unknown) (no (unknown) (unknown) Patient (units (unkno wn) date) Disposition: Home unknown) (unknown) (no (unknown) (unknown) Patient History (units (unknown) date) unknown) (unknown) (no (unknown) (unknown) Patient is (units (unk nown) date) appropriate for unknown) outpatient management. (unknown) (no (unknown) (unknown) Patient's pain (units (unknown) date) was treated with unknown) Toradol, she is nontoxic appearing, without TM (unknown) (no (unknown) (unknown) Patient: (units (unkno wn) date) Keisha Villeda F unknown) MR#: (unknown) (no (unknown) (unknown) Prescriptions: (units (unknown) date) unknown) (unknown) (no (unknown) (unknown) Previous Rx's (units ( unknown) date) unknown) (unknown) (no (unknown) (unknown) Psych: mental (units ( unknown) date) status is grossly unknown) normal, congruent mood, normal affect, pleasant (unknown) (no (unknown) (unknown) Pulse Oximetry 98 (units (unknown) date) 01/19/23 13:49 unknown) (unknown) (no (unknown) (unknown) Pulse Oximetry 98 (units (unknown) date) unknown) (unknown) (no (unknown) (unknown) Pulse Rate 100 H (units (unknown) date) 01/19/23 13:49 unknown) (unknown) (no (unknown) (unknown) Pulse Rate 100 H (units (unknown) date) unknown) (unknown) (no (unknown) (unknown) Qualifiers: (units (un known) date) unknown) (unknown) (no (unknown) (unknown) Questions are (units ( unknown) date) addressed and unknown) there is agreement with the plan and for follow-up. (unknown) (no (unknown) (unknown) ROS Unobtainable: (units (unknown) date) All systems unknown) reviewed + are unremarkable except as noted in HPI (unknown) (no (unknown) (unknown) Recurrence: (units (un known) date) recurrent unknown) Spontaneous tympanic membrane rupture: without (unknown) (no (unknown) (unknown) Referrals: (units (unk nown) date) unknown) (unknown) (no (unknown) (unknown) Related Data (units (u nknown) date) unknown) (unknown) (no (unknown) (unknown) Respiratory Rate (units (unknown) date) 18 01/19/23 13:49 unknown) (unknown) (no (unknown) (unknown) Respiratory Rate (units (unknown) date) 18 unknown) (unknown) (no (unknown) (unknown) Review of Systems (units (unknown) date) unknown) (unknown) (no (unknown) (unknown) Reviewed vitals (units (unknown) date) signs and nursing unknown) notes. (unknown) (no (unknown) (unknown) Megan Pendleton, (units (unknown) date) PA-C [Primary Care unknown) Provider] (unknown) (no (unknown) (unknown) Signed By: (units (unk nown) date) unknown) (unknown) (no (unknown) (unknown) Skin: brisk (units (un known) date) capillary refill, unknown) without pallor or erythema (unknown) (no (unknown) (unknown) Smoking Status: (units (unknown) date) Never smoker unknown) (unknown) (no (unknown) (unknown) Social History (units (unknown) date) (Reviewed 09/25/21 unknown) @ 00:40 by Isela Velazquez DO) (unknown) (no (unknown) (unknown) Social (units (unkno wn) date) considerations unknown) that may affect disposition: none (unknown) (no (unknown) (unknown) Source: patient (units (unknown) date) unknown) (unknown) (no (unknown) (unknown) Stand Alone (units (un known) date) Forms: Patient unknown) Portal/API (unknown) (no (unknown) (unknown) Stated complaint: (units (unknown) date) ruptured both unknown) eardrum clear liquid coming out (unknown) (no (unknown) (unknown) Stop: 01/19/23 (units (unknown) date) 15:20 unknown) (unknown) (no (unknown) (unknown) Stop: 01/19/23 (units (unknown) date) 15:22 unknown) (unknown) (no (unknown) (unknown) Substance Use (units ( unknown) date) Type: does not use unknown) (unknown) (no (unknown) (unknown) Temperature 98.6 (units (unknown) date) F 01/19/23 13:49 unknown) (unknown) (no (unknown) (unknown) Temperature 98.6 (units (unknown) date) F unknown) (unknown) (no (unknown) (unknown) This is a 27 year (units (unknown) date) female presents to unknown) the emergency department complaining of (unknown) (no (unknown) (unknown) Throat for (units (unk nown) date) recheck and to unknown) tell him that it is more urgent if she is having (unknown) (no (unknown) (unknown) Time Seen by (units (u nknown) date) Provider: 01/19/23 unknown) 15:12 (unknown) (no (unknown) (unknown) [place] until (units (u nknown) date) February. She had unknown) antibiotics for 6 days, had recurrence of otitis (unknown) (no (unknown) (unknown) Vital Signs - 8 (units (unknown) date) hr unknown) (unknown) (no (unknown) (unknown) Vital Signs (units (un known) date) unknown) (unknown) (no (unknown) (unknown) Vital signs: (units (u nknown) date) unknown) (unknown) (no (unknown) (unknown) [ ] New (units (unkno wn) date) medication written unknown) as a paper prescription (unknown) (no (unknown) (unknown) [ ] No new (units (unk nown) date) medications given unknown) (unknown) (no (unknown) (unknown) [x ] New (units (unkno wn) date) medication unknown) prescriptions sent to your pharmacy: [ [facility]] (unknown) (no (unknown) (unknown) afebrile (units (unkno wn) date) unknown) (unknown) (no (unknown) (unknown) and a half ago. (units (unknown) date) Her primary care unknown) provider is Veda NAVARRO, states that (unknown) (no (unknown) (unknown) and below (units (unkn own) date) unknown) (unknown) (no (unknown) (unknown) and cooperative (units (unknown) date) unknown) (unknown) (no (unknown) (unknown) any doses. I hope (units (unknown) date) you start feeling unknown) better soon. (unknown) (no (unknown) (unknown) appointment. Let (units (unknown) date) them know you were unknown) seen in the Emergency Department and that we (unknown) (no (unknown) (unknown) as well to (units (unk nown) date) decongestant unknown) middle ear and encouraged to stay hydrated use Tylenol (unknown) (no (unknown) (unknown) asked that you be (units (unknown) date) seen for unknown) follow-up. We will electronically transmit a record (unknown) (no (unknown) (unknown) bilateral ear (units ( unknown) date) infection. She unknown) denies remember what medication was, states that (unknown) (no (unknown) (unknown) bilateral ear (units ( unknown) date) pain which has unknown) returned after she took antibiotics for 6 days for (unknown) (no (unknown) (unknown) bilaterally. (units (u nknown) date) Encourage patient unknown) to follow-up with Dr. Palm from [facility] and (unknown) (no (unknown) (unknown) but not (units (unkno wn) date) prednisone. States unknown) reaction prednisone caused her to drive slowly. (unknown) (no (unknown) (unknown) can not wait that (units (unknown) date) long. She does not unknown) take any antihistamines, is not currently (unknown) (no (unknown) (unknown) canal pain but (units (unknown) date) denies tenderness unknown) to manipulation of the pinna of her ear. She (unknown) (no (unknown) (unknown) cefdinir 300 mg (units (unknown) date) capsule 300 mg PO unknown) BID 10 days #20 caps 01/19/23 (unknown) (no (unknown) (unknown) cefdinir 300 mg (units (unknown) date) capsule unknown) (unknown) (no (unknown) (unknown) cephalosporins in (units (unknown) date) the past. Patient unknown) states that she is tolerant to all steroids (unknown) (no (unknown) (unknown) cetirizine 10 mg (units (unknown) date) tablet 20 mg PO unknown) BEDTIME #40 tabs 01/19/23 (unknown) (no (unknown) (unknown) cetirizine 10 mg (units (unknown) date) tablet unknown) (unknown) (no (unknown) (unknown) concerning (units (unk nown) date) symptoms, such as unknown) [fever greater than 101F, chills, worsening pain, (unknown) (no (unknown) (unknown) cyclobenzaprine (units (unknown) date) 10 mg tablet 10 mg unknown) PO TID PRN muscle spasm #14 07/20/20 (unknown) (no (unknown) (unknown) cyclobenzaprine (units (unknown) date) 10 mg tablet unknown) (unknown) (no (unknown) (unknown) days and gave her (units (unknown) date) 1 g IM ceftriaxone unknown) in the emergency department, if patient (unknown) (no (unknown) (unknown) denies nausea, (units (unknown) date) vomiting, denies unknown) neck pain but states that she has swollen lymph (unknown) (no (unknown) (unknown) discharge, (units (unk nown) date) patient has unknown) anterior cervical lymphadenopathy, neck is supple, full (unknown) (no (unknown) (unknown) establish care (units (unknown) date) with one of the unknown) [facility] primary care providers. (unknown) (no (unknown) (unknown) external ear (units (un known) date) canals are normal unknown) without tenderness with manipulation, there is no (unknown) (no (unknown) (unknown) gabapentin (units (unk nown) date) Allergy Rash unknown) Verified 01/19/23 13:55 (unknown) (no (unknown) (unknown) her ears but (units (u nknown) date) states that the unknown) pain got a lot worse. She states that she has ear (unknown) (no (unknown) (unknown) however I was (units ( unknown) date) concerned about unknown) recurrence. I prescribed for patient cetirizine (unknown) (no (unknown) (unknown) ibuprofen for (units ( unknown) date) pain. unknown) (unknown) (no (unknown) (unknown) ketorolac 10 mg (units (unknown) date) tablet 10 mg PO unknown) TID PRN pain #15 tabs 07/20/20 (unknown) (no (unknown) (unknown) ketorolac 10 mg (units (unknown) date) tablet unknown) (unknown) (no (unknown) (unknown) know that you (units ( unknown) date) were seen in the unknown) Emergency Department and he would like to (unknown) (no (unknown) (unknown) media bilaterally (units (unknown) date) without rupture. I unknown) placed her on cefdinir b.i.d. times 10 (unknown) (no (unknown) (unknown) membrane. Please (units (unknown) date) start taking unknown) Zyrtec 20 mg at night for congestion of the (unknown) (no (unknown) (unknown) middle ear until (units (unknown) date) you are fully unknown) better. Please stay hydrated, drink plenty of (unknown) (no (unknown) (unknown) nodes. She denies (units (unknown) date) fever, chills, unknown) vision changes, headaches or other symptom. (unknown) (no (unknown) (unknown) of muffled (units (unk nown) date) hearing however unknown) she is hearing me loud and clear. (unknown) (no (unknown) (unknown) of today's note (units (unknown) date) if your PCP is in unknown) our system (unknown) (no (unknown) (unknown) on an antibiotic, (units (unknown) date) states that the unknown) pain is severe. Denies discharge coming from (unknown) (no (unknown) (unknown) pain, now with (units (unknown) date) regular rate and unknown) rhythm, no peripheral edema, warm extremities, (unknown) (no (unknown) (unknown) palpation (units (unkn own) date) bilaterally, unknown) bilateral TMs are bulging, erythematous and suppurative (unknown) (no (unknown) (unknown) penicillin G (units (u nknown) date) Allergy Unknown unknown) Unverified 09/24/21 21:14 (unknown) (no (unknown) (unknown) persistent (units (unk nown) date) vomiting or other unknown) bothersome symptoms]. (unknown) (no (unknown) (unknown) prednisone (units (unk nown) date) AdvReac Unknown unknown) Verified 01/19/23 13:55 (unknown) (no (unknown) (unknown) range of motion (units (unknown) date) without deficit, unknown) no meningeal signs, mastoids are nontender to (unknown) (no (unknown) (unknown) returns with this (units (unknown) date) pain, she can unknown) receive ceftriaxone instead of cefdinir x3 days (unknown) (no (unknown) (unknown) rupture (units (unkno wn) date) bilaterally, she unknown) has bulging, erythematous and suppurative TMs (unknown) (no (unknown) (unknown) schedule (units (unkno wn) date) follow-up unknown) urgently. Please complete this medication and do not miss (unknown) (no (unknown) (unknown) schedule (units (unkno wn) date) follow-up with unknown) [facility] from [facility]. Please let them (unknown) (no (unknown) (unknown) she has (units (unkno wn) date) anaphylaxis unknown) allergy to penicillin states this was approximally a week (unknown) (no (unknown) (unknown) she has scheduled (units (unknown) date) follow-up with ear unknown) nose and throat for February but states she (unknown) (no (unknown) (unknown) spontaneous (units (un known) date) rupture Qualified unknown) Code(s): H66.006 - Acute suppurative otitis media (unknown) (no (unknown) (unknown) start taking this (units (unknown) date) oral antibiotic unknown) morning and night for the next 10 days and (unknown) (no (unknown) (unknown) tabs (units (unkno wn) date) unknown) (unknown) (no (unknown) (unknown) topical paste (units ( unknown) date) (Desitin) unknown) (unknown) (no (unknown) (unknown) tympanic (units (unkno wn) date) membrane, unknown) resistant bacteria, middle ear effusion, mastoiditis (unknown) (no (unknown) (unknown) water, take (units (un known) date) Tylenol ibuprofen unknown) as needed for your pain every 6 hours. Please (unknown) (no (unknown) (unknown) well as prior (units ( unknown) date) records if unknown) available. No evidence of patient having (unknown) (no (unknown) (unknown) without rupture. (units (unknown) date) unknown) (unknown) (no (unknown) (unknown) without (units (unkno wn) date) spontaneous unknown) rupture of ear drum, recurrent, bilateral (unknown) (no (unknown) (unknown) worsening of her (units (unknown) date) symptoms. She was unknown) unable to get into ear nose and throat (unknown) (no (unknown) (unknown) zinc oxide-cod (units (unknown) date) liver oil 40 % 1 unknown) applic topical TID #57 grams 09/25/21 Social History date description facility 2023-01-19 00:00 Never smoked tobacco (finding) [facility] Vital Signs date measurement value units 2023-01-19 00:00 BMI 37.1 kg/m2 2023-01-19 00:00 BP_diastolic 68 mmHg 2023-01-19 00:00 BP_systolic 132 mmHg 2023-01-19 00:00 heart_rate 89 /min 2023-01-19 00:00 height_metric 167.64 cm 2023-01-19 00:00 height_standard 66 in 2023-01-19 00:00 o2_saturation 100 % 2023-01-19 00:00 respiration_rate 18 /min 2023-01-19 00:00 temperature_metric 37 C 2023-01-19 00:00 temperature_standard 98.6 F 2023-01-19 00:00 weight_metric 104.32 kg 2023-01-19 00:00 weight_standard 229.99 lb
[2023-02-19] MEDS ORDERED: IBUPROFEN 600 MG TABLET PO STA (21:11)
[2023-02-19] MEDS ORDERED: ACETAMINOPHEN 325 MG TABLET PO STA (21:11)
[2023-02-19 21:45] VITALS: BP 142/94
--- NOTE | 2023-02-19 22:04 | XRAY Report ---
PROCEDURE: Shoulder 3 View LT INDICATIONS: fall, left shoulder pain. TECHNIQUE: 3 views of the shoulder were acquired. COMPARISON: None. FINDINGS: Bones: No fractures or dislocations. No suspicious bony lesions. Visualized ribs appear intact. Soft tissues: There is a small calcification lateral to the humeral head suggestive of calcific tendi nitis. IMPRESSION: 1. No fracture or dislocation. 2. Suspected calcific tendinitis of the rotator cuff. Reviewed by: Reinaldo García MD on 02/19/2023 10:03 PM PDT Approved by: Reinaldo García MD on 02/19/2023 10:03 PM PDT Station ID: [id number]
== END 2023-02-19 21:45 | disposition home or self-care (01) ==
LOC: ED 20:33
DX: S49.92XA Unspecified injury of left shoulder and upper arm, initial encounter (principal); W11.XXXA Fall on and from ladder, initial encounter; Y93.89 Activity, other specified; Y92.009 Unspecified place in unspecified non-institutional (private) residence as the place of occurrence of the external cause
CPT/HCPCS: 73030; 99283; A9270

== ENCOUNTER 2023-11-26 12:49 | Emergency (ER) | payer MEDICAID ==
--- NOTE | 2023-11-26 13:27 | XRAY Report ---
PROCEDURE: Chest 2V INDICATIONS: SOB TECHNIQUE: 2 views of the chest were acquired. COMPARISON: Chest x-ray 1128 weeks FINDINGS: Surgical changes and devices: None. Lungs and pleura: No pleural effusions or pneumothorax. Lungs are clear. Mediastinum: Mediastinal contours appear normal. Heart size is normal. Bones and chest wall: No suspicious bony lesions. Overlying soft tissues appear unremarkable. IMPRESSION: No acute cardiopulmonary process. Reviewed by: Kesha Varner MD on 11/26/2023 1:26 PM [facility] Approved by: Kesha Varner MD on 11/26/2023 1:26 PM [facility] Station ID: [id number]
[2023-11-26 14:15] LABS: B. PARAPERTUSSIS- RESP PCR PAN NOT DETECTED; B. PERTUSSIS- RESP PCR PANEL NOT DETECTED; C. PNEUMONIAE- RESP PCR PANEL NOT DETECTED; CORONAVIRUS 229E-RESP PCR NOT DETECTED; CORONAVIRUS HKU1-RESP PCR NOT DETECTED; CORONAVIRUS NL63-RESP PCR NOT DETECTED; CORONAVIRUS OC43-RESP PCR NOT DETECTED; HUMAN METAPNEUMOVIRUS NOT DETECTED; INFLUENZA A- RESP PCR PANEL NOT DETECTED; INFLUENZA B - RESP PCR PANEL NOT DETECTED; M. PNEUMONIAE- RESP PCR PANEL NOT DETECTED; PARAINFLUENZA VIRUS 1 DETECTED; PARAINFLUENZA VIRUS 2 NOT DETECTED; PARAINFLUENZA VIRUS 3 NOT DETECTED; PARAINFLUENZA VIRUS 4 NOT DETECTED; RHINOVIRUS/ENTEROVIRUS NOT DETECTED; RSV- RESP PCR PANEL NOT DETECTED; SARS-CoV-2 -RESP PCR PANEL NOT DETECTED
[2023-11-26 14:46] LABS: BASOPHILS % (AUTO) 0.5 %; EOSINOPHILS # (AUTO) 0.2 10^3/uL (0.0-0.7); EOSINOPHILS % (AUTO) 1.9 %; HCT - HEMATOCRIT 40.2 % (37.0-47.0); HGB - HEMOGLOBIN 12.4 g/dL (12.0-16.0); LYMPHOCYTES # (AUTO) 2.7 10^3/uL (1.5-3.5); LYMPHOCYTES % (AUTO) 32.3 %; MEAN CORPUSCULAR HEMOGLOBIN 26.3 pg (27.0-31.0); MEAN CORPUSCULAR HGB CONC 30.8 g/dL (32.0-36.0); MEAN CORPUSCULAR VOLUME 85.4 fL (81.0-99.0); MEAN PLATELET VOLUME 9.3 fL (7.9-10.8); MONOCYTES # (AUTO) 0.6 10^3/uL (0.0-1.0); MONOCYTES % (AUTO) 7.6 %; NEUTROPHILS # (AUTO) 4.8 10^3/uL (1.5-6.6); NEUTROPHILS % (AUTO) 57.5 %; PLT - PLATELET COUNT 339 10^3/uL (130-450); RED BLOOD COUNT 4.71 10^6/uL (4.20-5.40); RED CELL DISTRIBUTION WIDTH 14.2 % (12.0-15.0); WHITE BLOOD COUNT 8.4 x10^3/uL (4.8-10.8)
[2023-11-26 15:08] LABS: ALBUMIN 4.1 g/dL (3.2-5.5); ALBUMIN/GLOBULIN RATIO 0.9 (1.0-2.2); BILIRUBIN,TOTAL 0.4 mg/dL (0.2-1.0); CALCIUM 9.6 mg/dL (8.5-10.3); CREATININE 0.8 mg/dL (0.6-1.3); POTASSIUM 3.9 mmol/L (3.5-4.5); TOTAL PROTEIN 8.7 g/dL (6.4-8.9)
[2023-11-26 15:12] LABS: TROPONIN I HIGH SENSITIVITY 2.3 ng/L (2.3-14.8)
--- NOTE | 2023-11-26 15:15 | ED Physician Documentation ---
History of Present Illness - Stated complaint Stated Complaint: CONGESTION/CHEST PRESSURE - Chief complaint Chief Complaint: Resp - Additonal information Additional information: Patient 28-year-old female presenting to the emergency department with chest pain and shortness of breath. Reports has been having cough, congestion and shortness of breath ongoing x 1 month. It is gotten significantly worse over the course of the last few days. She does report that she has a school-aged child at home who is having similar symptoms over the course of the recent winter break. No other known sick contacts. Reports that she has had increased cough as well as left-sided stabbing chest pains that are intermittent in nature. Also reports that when she coughs she becomes very anxious and breathes heavily and feels that she has a difficult time catching her breath. She denies any chronic medical conditions. Denies any recent travel, hospitalizations, use of estrogen containing medications. She is a non-smoker. She otherwise denies for any abdominal pain, nausea, vomiting, diarrhea, constipation, new rash, new focal or lateralizing neurologic symptoms. Review of Systems Constitutional: denies: Fever Eyes: denies: Loss of vision Ears: denies: Loss of hearing Nose: reports: Rhinorrhea / runny nose, Congestion Cardiac: reports: Chest pain / pressure Respiratory: reports: Dyspnea, Cough. denies: Hemoptysis, Wheezing, Reviewed and negative GI: denies: Abdominal Pain, Nausea, Vomiting : denies: Dysuria PD PAST MEDICAL HISTORY - Past Medical History Cardiovascular: None Respiratory: None Neuro: None Endocrine/Autoimmune: None GI: Hemorrhoids LOGISTICS LOSS PREVENTION MANAGER: Ectopic , 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 : None HEENT: Chronic hearing loss, Other Psych: None Musculoskeletal: None Derm: None - Past Surgical History Past Surgical History: Yes Ortho: Arthroscopic surgery /LOGISTICS LOSS PREVENTION MANAGER: Endometrial ablation, Hysterectomy, Oophrectomy HEENT: Myringotomy (tubes) - Present Medications Home Medications: Ambulatory Orders Medication Instructions Recorded Confirmed Cetirizine [ZyrTEC] 10 mg PO BID #60 tablet 03/30/21 Fluticasone [Flonase] 2 sprays ELIANE DAILY 30 Days #16 gm 03/30/21 dexAMETHasone [Decadron] 4 mg PO DAILY #7 tablet 03/30/21 dexAMETHasone [Decadron] 12 mg PO DAILY 5 Days #10 tablet 07/01/21 - Allergies Allergies/Adverse Reactions: Allergies Allergy/AdvReac Type Severity Reaction Status Date / Time Penicillins Allergy Intermediate Respiratory Verified 02/19/23 20:52 gabapentin Allergy Rash Verified 02/19/23 20:52 prednisone Allergy Unknown Verified 02/19/23 20:52 - Social History Does the pt smoke?: No Smoking Status: Never smoker Does the pt drink ETOH?: Yes Does the pt have substance abuse?: No - Immunizations Immunizations are current?: Yes Immunizations: No immun - POLST Patient has POLST: No PD ED PE NORMAL - Vitals Vital signs reviewed: Yes (Patient hyperventilating) - General General: Alert and oriented X 3, No acute distress, Well developed/nourished - HEENT HEENT: Atraumatic, PERRL, EOMI, Ears normal, Moist mucous membranes, Pharynx benign - Neck Neck: Supple, no meningeal sign, No bony TTP, No adenopathy, Thyroid normal, No JVD, No bruit, C-Spine cleared by NEXUS criteria - Cardiac Cardiac: RRR, No murmur, No gallop, Strong equal pulses - Respiratory Respiratory: No respiratory distress, Clear bilaterally - Abdomen Abdomen: Normal bowel sounds, Non tender - Female Female : Deferred - Rectal Rectal: Deferred - Back Back: No CVA TTP - Derm Derm: Normal color - Extremities Extremities: No deformity - Neuro Neuro: Alert and oriented X 3, charge auditor 2-12 intact, No motor deficit, Normal speech Results - Vitals Vitals: Vital Signs - 24 hr 11/26/23 13:00 Temperature 36.4 C L Heart Rate 94 Respiratory 18 Rate Blood Pressure 145/103 H O2 Saturation 98 Oxygen O2 Source Room air - EKG (time done) 1505 EKG releavant findings:: EKG personally interpreted by author of this note. Relevant findings are: Sinus rhythm with rate 90 bpm. Normal axis. Normal NC, QRS, QTc intervals. No ST segment elevations. Significant motion artifact throughout. - Labs Labs: Laboratory Tests 11/26/23 11/26/23 11/26/23 13:09 14:37 14:37 WBC 8.4 RBC 4.71 Hgb 12.4 Hct 40.2 MCV 85.4 MCH 26.3 L MCHC 30.8 L RDW 14.2 Plt Count 339 MPV 9.3 Neut # (Auto) 4.8 Lymph # (Auto) 2.7 [place] # (Auto) 0.6 Eos # (Auto) 0.2 Baso # (Auto) 0.0 Absolute Nucleated RBC 0.00 Nucleated RBC % 0.0 Sodium 137 Potassium 3.9 Chloride 102 Carbon Dioxide 28 Anion Gap 7.0 BUN 11 Creatinine 0.8 Estimated GFR (MDRD) 84 L Glucose 84 Calcium 9.6 Total Bilirubin 0.4 AST 25 ALT 22 Alkaline Phosphatase 52 Troponin I High Sens 2.3 Total Protein 8.7 Albumin 4.1 Globulin 4.6 H Albumin/Globulin Ratio 0.9 L Lipase 54 Nasal Adenovirus (PCR) NOT DETECTED Nasal B. parapertussis DNA (PCR) NOT DETECTED Nasal Coronavir 229E PCR NOT DETECTED Nasal Coronavir HKU1 PCR NOT DETECTED Nasal Coronavir NL63 PCR NOT DETECTED Nasal Coronavir OC43 PCR NOT DETECTED Nasal Enterovir/Rhinovir PCR NOT DETECTED Nasal Influenza B PCR NOT DETECTED Nasal Influenza A PCR NOT DETECTED Nasal Parainfluen 1 PCR DETECTED A Nasal Parainfluen 2 PCR NOT DETECTED Nasal Parainfluen 3 PCR NOT DETECTED Nasal Parainfluen 4 PCR NOT DETECTED Nasal RSV (PCR) NOT DETECTED Nasal B.pertussis DNA PCR NOT DETECTED Nasal C.pneumoniae (PCR) NOT DETECTED Eliane Human Metapneumo PCR NOT DETECTED Nasal M.pneumoniae (PCR) NOT DETECTED Nasal SARS-CoV-2 (PCR) NOT DETECTED PD Medical Decision Making - ED course Complexity details: reviewed results, considered differential, d/w patient ED course: Patient is a 28-year-old female presenting to the emergency department with chest pain, cough, congestion, shortness of breath. Initial protocoled orders for respiratory viral panel and chest x-ray were performed prior to my evaluation. These demonstrated a positive respiratory viral panel for parainfluenza virus and a chest x-ray without acute intrathoracic pathology. During my evaluation I found the patient to be in a modest amount of distress, hyperventilating and complaining of stabbing left-sided chest pain. She had clear aeration in all lung gaming and with the exception of some mild upper airway congestion the remainder of her physical exam was benign. Differential diagnosis initially considered included but was not limited to pleuritis, costochondritis, acute coronary syndrome. Pulmonary embolism is also considered however she is low risk Wells and PERC negative in the emergency department making the possibility of clinically significant pulmonary embolus quite low. She was offered medication for pain control and anxiety in the emergency department which she declined. I did obtain an EKG which had some significant motion artifact but no clear indications of cardiac ischemia. Additionally her labs and high-sensitivity troponin were also benign. I believe that there is an anxiety component to her presentation and She was offered hydroxyzine both for its calming effect as well as as an antihistamine which could help improve her other upper respiratory tract style symptoms. She was encouraged to use [id number] medications such as ibuprofen and acetaminophen for ongoing chest pain. To follow-up with her primary care doctor or return to the emergency department for new or worsening symptoms. Departure - Departure Clinical Impression: Parainfluenza, Chest wall pain Instructions: ED Viral Syndrome, ED Chest Pain Costochondritis Comments: Thank you for allowing us to care for you today [facility]. Today in the emergency department you were evaluated for any possible dangerous or life-threatening medical condition. All of the testing performed in the emergency department today including your blood work, EKG and chest x-ray were all very reassuring. You were positive for parainfluenza virus. This is a common wintertime virus often associated with cough and cold symptoms. The symptoms well frustrating are not generally dangerous and otherwise healthy individuals. They can however take several weeks to fully resolve. [id number] medications such as ibuprofen and acetaminophen can be used to help with any pain or body ache you may experience. Continued use of decongestants such as Mucinex can also be helpful. I will also be writing you a prescription for a medication known as hydroxyzine, also known as Atarax. This is an antihistamine that can help with your congestion and is also often used to help and very mild cases of anxiety or insomnia. Please be aware that this medication is mildly in [place] and should not be used if you are operating a motor vehicle, using heavy machinery or you are the sole cigarette book maker of young children. If it anytime you have new or worsening symptoms please not hesitate to return.
[2023-11-26 15:53] VITALS: BP 140/90; O2SAT 96
== END 2023-11-26 15:50 | disposition home or self-care (01) ==
LOC: ED 12:49
DX: R07.89 Other chest pain (principal); B34.8 Other viral infections of unspecified site; Z11.52 Encounter for screening for COVID-19
CPT/HCPCS: 36415; 80053; 83690; 84484; 85025; 87633; 93005; 99283; 99284